=== PATIENT | female | born 1975 | race Caucasian/White ===

== ENCOUNTER 2016-12-02 16:30 | Emergency (ER) | payer MEDICARE, MEDICAID ==
[2016-12-02] MEDS ORDERED: traMADol 50 MG Tab ONE (16:45)
[2016-12-02 16:58] VITALS: BP 129/73
--- NOTE | 2016-12-02 23:51 | ER ---
HISTORY OF PRESENT ILLNESS: A 41-year-old lady here with complaints of right foot pain that has been present for a couple of weeks and is getting worse. She states that her ankle was painful earlier as well. She was seen in clinic earlier for this condition, ankle x-rays were taken, negative for fracture, it did show a heel spur. The patient denies any falls or injuries from this. 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 The pain seems to be slowly getting worse. She has been taking Advil some of the time. Today, she realized that she was limping when she was walking and it hurts even when she just stood and put weight on her right foot. She decided to come in for recheck. CURRENT MEDICATIONS: Imitrex and albuterol. ALLERGIES: PENICILLIN. OBJECTIVE: GENERAL APPEARANCE: The patient is awake and alert. No obvious distress at rest. VITAL SIGNS: Reviewed and they are normal. EXTREMITIES: Examining the right foot reveals skin is intact, there is no obvious swelling. There is diffuse tenderness with even light palpation over the dorsal and sole of the foot. The toes are nontender but the entire foot to the ankle is including the heel. The ankle and lower leg are nontender with palpation. There is good color involving the foot capillary refill is less than 2 seconds involving the toes. LAB AND X-RAY: X-ray was obtained which is negative for fracture or acute bony abnormality. DIAGNOSIS: Tendinitis type pain of the right foot. TREATMENT PLAN: A walking boot was applied. The patient is able to stand and bear weight with this with a significant improvement in pain. She will wear this with all walking activities. She can remove it at night. She is to take Advil 600 to 800 mg 3 times a day with food, and we will give her a few Ultram tablets to take as needed. She is to take it easy for the next couple of days. The patient does have an appointment in the clinic on Sunday. I advised her to keep that appointment for recheck. TATI/AZAR /[id number]
--- NOTE | 2016-12-03 21:14 | CR ---
DATE OF SERVICE: 12/02/2016 CLINICAL DATA: Foot pain x 2 weeks. No injury. RIGHT FOOT No acute fracture or dislocation. No lytic or blastic bone lesions. There are plantar and posterior calcaneal spurs. [id number] [facility]
== END 2016-12-02 17:30 | disposition home or self-care (01) ==
LOC: LB.ED 16:30
DX: M77.51 Other enthesopathy of right foot and ankle (principal); Z88.0 Allergy status to penicillin
CPT/HCPCS: 73630; A9270; 99283

== ENCOUNTER 2017-02-09 01:33 | Emergency (ER) | payer MEDICARE, MEDICAID ==
[2017-02-09] MEDS ORDERED: Sodium Chloride 0.9% 1,000 ML IV ONE (01:40)
[2017-02-09] MEDS ORDERED: Ondansetron 4 MG/2 ML SDV IVPUSH ONE (01:41)
[2017-02-09 02:18] VITALS: BP 133/85
--- NOTE | 2017-02-09 03:35 | ER ---
HPI: A 41-year-old lady who comes in by ambulance with questionable alcohol intoxication. The patient was drinking over the course of the evening and she started to vomit. A friend called the ambulance. The patient is unsure why she is here. She admits that she has been drinking alcohol and that she is vomiting and puking several times. CURRENT MEDICATIONS: Reviewed. ALLERGIES: MEDICATION ALLERGIES: PENICILLIN. OBJECTIVE: GENERAL APPEARANCE: The patient is awake and alert. She is slow to respond to questions. No respiratory distress. VITAL SIGNS: Reviewed. She is afebrile. Blood pressure is 133/85, respirations 18. LUNGS: Clear. CARDIAC: Heart sounds distinct without murmurs. SKIN: Warm and dry. LABORATORY AND X-RAY: CBC is unremarkable. CMP shows a slightly low potassium level of 3.3. ETOH is 169. DIAGNOSES: 1. Alcohol intoxication. 2. Mild hypokalemia secondary to vomiting. TREATMENT PLAN: Normal saline was given in bolus form, 1 L. The patient was also given Zofran 8 mg IV. After monitoring her for about an hour, she was sleeping quietly, but did wake to verbal stimuli. She states that she feels better. She is not nauseated and will be discharged home. She is to refrain from drinking alcohol and increase her water intake. Follow up as pjoanna DUFFY/AZAR /[id number]
== END 2017-02-09 03:23 | disposition home or self-care (01) ==
LOC: LB.ED 01:33
DX: F10.129 Alcohol abuse with intoxication, unspecified (principal); Y90.6 Blood alcohol level of 120-199 mg/100 ml; E87.6 Hypokalemia; R11.10 Vomiting, unspecified; Z88.0 Allergy status to penicillin
CPT/HCPCS: 36415; 80053; 85025; 96361; 96374; 99282; 99284; A0425; A0429; G0480; J2405; J7040

== ENCOUNTER 2017-07-07 18:10 | Emergency (ER) | payer MEDICARE, MEDICAID ==
[2017-07-07 18:35] VITALS: BP 119/83
--- NOTE | 2017-07-07 18:56 | EDM.PDOC ---
ED HPI GENERAL MEDICAL PROBLEM - General Chief Complaint: General Stated Complaint: LEFT FOOT INJURY Time Seen by Provider: 07/07/17 18:20 Source of Information: Reports: Patient History Limitations: Reports: No Limitations - History of Present Illness INITIAL COMMENTS - FREE TEXT/NARRATIVE: According to patient she claims that she was coming down the stairs and accidentally twisted her left foot and feel from 4 stairs height and hit her left great toe against the wooden rails. Pt has been able to walk since the fall , but has been c/o pain in her left great toe and ankle. No swelling or bruising of the foot or ankle. No other injuries. Onset: Today Onset Date: 07/07/17 Onset Time: 18:00 Location: Reports: Lower Extremity, Right Quality: Reports: Ache Severity: Mild Improves with: Reports: None Worsens with: Reports: None Associated Symptoms: Denies: Confusion, Chest Pain, Fever/Chills, Nausea/ Vomiting, Rash, Shortness of Breath, Syncope Left Feet Pain Score (Numeric/FACES): 6 - Related Data Allergies Allergy/AdvReac Type Severity Reaction Status Date / Time Penicillins Allergy Rash Verified 07/07/17 18:31 Home Meds: Home Meds Albuterol Sulfate [Ventolin Hfa] 1 puff INH BID PRN 07/07/17 [History] Albuterol/Ipratropium [Combivent Respimat] 1 puff INH BID PRN 07/07/17 [History] SUMAtriptan [Imitrex] 50 mg PO DAILY PRN 07/07/17 [History] traMADol HCl [Tramadol HCl] 50 tab PO TID PRN 07/07/17 [History] Past Medical History 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: 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: Neurological History: Reports: Migraines - Infectious Disease History Infectious Disease History: Reports: Chicken Pox - Past Surgical History GI Surgical History: Reports: Cholecystectomy Female Surgical History: Reports: Tubal Ligation Social & Family History - Family History Family Medical History: Noncontributory - Tobacco Use Smoking Status *Q: Light Tobacco Smoker Years of Tobacco use: 20 Packs/Tins Daily: 0.5 Used Tobacco, but Quit: No Month Tobacco Last Used: UNABLE TO DETERMINE Second Hand Smoke Exposure: Yes - Caffeine Use Caffeine Use: Reports: Soda - Alcohol Use Days Per Week of Alcohol Use: 1 Number of Drinks Per Day: 1 Total Drinks Per Week: 1 - Recreational Drug Use Recreational Drug Use: No ED ROS GENERAL - Review of Systems Review Of Systems: See Below Constitutional: Denies: Fever, Chills HEENT: Denies: Throat Pain, Throat Swelling Respiratory: Denies: Shortness of Breath, Wheezing, Cough, Sputum, Hemoptysis Cardiovascular: Denies: Chest Pain, Lightheadedness GI/Abdominal: Denies: Nausea, Vomiting Musculoskeletal: Reports: Foot Pain. Denies: Joint Pain, Joint Swelling, Muscle Stiffness Skin: Denies: Bruising, Pruritis ED EXAM, GENERAL - Physical Exam Exam: See Below Exam Limited By: No Limitations General Appearance: Alert, WD/WN, Mild Distress Eye Exam: Bilateral Eye: EOMI, PERRL Ears: Normal External Exam Nose: Normal Inspection, Normal Mucosa, No Blood Throat/Mouth: Normal Inspection, Normal Lips, Normal Teeth, Normal Gums, Normal Oropharynx, Normal Voice, No Airway Compromise Head: Atraumatic, Normocephalic Neck: Normal Inspection, Supple, Non-Tender, Full Range of Motion Respiratory/Chest: No Respiratory Distress, Lungs Clear, Normal Breath Sounds, No Accessory Muscle Use, Chest Non-Tender Cardiovascular: Normal Peripheral Pulses, Regular Rate, Rhythm, No Edema, No Gallop, No JVD, No Murmur, No Rub Extremities: Normal Inspection, Normal Range of Motion, No Pedal Edema, Normal Capillary Refill, Other (left foot: there is no obvious deformity. She has good ROM around the ankle. Tender over the lateral aspect of the ankle to pressure over the lateral malleolus. Tender over the great toe MTP joint. ) Course - Vital Signs Text/Narrative:: Pt's reassured that her left foot ankle Xray appears normal. Also the great toe appears normal. there is no swelling or bruising of the foot or ankle, and she has been weight bearing and walking on her feet. Chance of fracture is low. Pt reassured that she has ankle sprain. Advised cold compresses for 24 hrs followed by warm compresses 3-4 times daily. She is on tramadol by her PCP , advised to take it as needed. If not better followup with her PCP on sunday. Last Recorded V/S: Last Vital Signs Temp 97.6 F 07/07/17 18:40 Pulse 64 07/07/17 18:40 Resp 16 07/07/17 18:40 BP 119/83 07/07/17 18:40 Pulse Ox 98 07/07/17 18:40 - Orders/Labs/Meds Orders: Active Orders 24 hr Category Date Time Status Ankle Min 3V Lt [CR] Stat Exams 07/07/17 18:31 Taken Departure - Departure Time of Disposition: 19:15 Disposition: Home, Self-Care 01 Condition: Good Clinical Impression: Left ankle sprain - Discharge Information Instructions: Foot Contusion, [id number] Referrals: PCP,None [Primary Care Provider] - Forms: ED Department Discharge Additional Instructions: May take prescribed Tramadol as directed as needed for pain. May also take 800mg Ibuprofen every 8 hours as needed for pain. Apply cold compress to affected foot every 3-4 hours for 15 minutes to help with swelling. Also be sure to keep injured foot elevated to help with swelling as well. Activity as tolerated. May bear weight on affected foot. Follow up in clinic if needed. Call with any questions. - Problem List & Annotations (1) Left ankle sprain SNOMED Code(s): 89140910 Code(s): S93.402A - SPRAIN OF UNSPECIFIED LIGAMENT OF LEFT ANKLE, INIT ENCNTR Status: Acute Current Visit: Yes - Problem List Review Problem List Initiated/Reviewed/Updated: Yes - My Orders Last 24 Hours: My Active Orders 07/07/17 18:31 Ankle Min 3V Lt [CR] Stat - Assessment/Plan Last 24 Hours: My Active Orders 07/07/17 18:31 Ankle Min 3V Lt [CR] Stat Assessment:: left ankle sprain Plan: Pt's reassured that her left foot ankle Xray appears normal. Also the great toe appears normal. there is no swelling or bruising of the foot or ankle, and she has been weight bearing and walking on her feet. Chance of fracture is low. Pt reassured that she has ankle sprain. Advised cold compresses for 24 hrs followed by warm compresses 3-4 times daily. She is on tramadol by her PCP , advised to take it as needed. If not better followup with her PCP on sunday.
--- NOTE | 2017-07-09 08:24 | CR ---
DATE OF SERVICE: 07/07/17 CLINICAL DATA: injured left foot LEFT ANKLE: No acute fracture or dislocation. No lytic or blastic bone lesions. 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 There are plantar and posterior calcaneal spurs. No other significant findings. [id number] [facility]
== END 2017-07-07 19:23 | disposition home or self-care (01) ==
LOC: LB.ED 18:10
DX: S93.402A Sprain of unspecified ligament of left ankle, initial encounter (principal); Z88.0 Allergy status to penicillin; F17.210 Nicotine dependence, cigarettes, uncomplicated; W10.9XXA Fall (on) (from) unspecified stairs and steps, initial encounter
CPT/HCPCS: 73610-LT; 99283

== ENCOUNTER 2019-02-22 16:09 | Emergency (ER) | payer MEDICARE, MEDICAID ==
[2019-02-22 16:23] VITALS: BP 130/72; PULSE 64
[2019-02-22] MEDS ORDERED: Ketorolac 30 MG/ML SDV IM ONE (16:24)
--- NOTE | 2019-02-22 20:16 | EDM.PDOC ---
ED HPI GENERAL MEDICAL PROBLEM - General Chief Complaint: Headache Stated Complaint: MIGRAINE Time Seen by Provider: 02/22/19 16:22 Source of Information: Reports: Patient History Limitations: Reports: No Limitations - History of Present Illness INITIAL COMMENTS - FREE TEXT/NARRATIVE: According to patient she has been having headache since Sunday. Most of the pain is in the frontal region. goes from dull achy to throbbing. She has photophobia. but no nausea or vomiting. She has taken Imitrex on Sunday 2 times which did not help. So she started taking tylenol and motrin and the headache has not resolved. pt does have migraine and feels like this is one of the attack not resolving. No blurry vision. No weakness, no vomiting. No other complaints. Onset Date: 02/19/19 Duration: Getting Worse, Waxing/Waning Location: Reports: Head Quality: Reports: Ache Severity: Moderate Improves with: Reports: None Worsens with: Reports: None Associated Symptoms: Denies: Confusion, Chest Pain, Cough, Diaphoresis, Fever/ Chills, Headaches, Nausea/Vomiting, Rash, Seizure, Shortness of Breath, Syncope , Weakness Treatments CUT OFF SAWYER: Reports: Acetaminophen, NSAIDS, Other (see below) Other Treatments CUT OFF SAWYER: Imitrex Frontal Headache Pain Score (Numeric/FACES): 7 - Related Data Allergies Allergy/AdvReac Type Severity Reaction Status Date / Time Penicillins Allergy Rash Verified 02/22/19 16:19 Home Meds: Home Meds Albuterol Sulfate [Ventolin Hfa] 1 puff INH BID PRN 07/07/17 [History] Albuterol/Ipratropium [Combivent Respimat] 1 puff INH BID PRN 07/07/17 [History] SUMAtriptan [Imitrex] 50 mg PO ASDIRECTED PRN 07/07/17 [History] Past Medical History 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: Asthma Gastrointestinal History: Reports: None Genitourinary History: Reports: None 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: Neurological History: Reports: Migraines - Infectious Disease History Infectious Disease History: Reports: Chicken Pox - Past Surgical History Respiratory Surgical History: Reports: None GI Surgical History: Reports: Cholecystectomy Female Surgical History: Reports: Section, Tubal Ligation Neurological Surgical History: Reports: None Social & Family History - Family History Family Medical History: Noncontributory - Tobacco Use Smoking Status *Q: Former Smoker Used Tobacco, but Quit: Yes Month/Year Tobacco Last Used: 2018 - Caffeine Use Caffeine Use: Reports: Soda - Recreational Drug Use Recreational Drug Use: No ED ROS GENERAL - Review of Systems Review Of Systems: See Below Constitutional: Denies: Fever, Chills HEENT: Denies: Rhinitis, Throat Pain Respiratory: Denies: Shortness of Breath, Cough, Sputum Cardiovascular: Denies: Chest Pain, Lightheadedness GI/Abdominal: Denies: Abdominal Pain, Constipation, Diarrhea, Nausea, Vomiting : Denies: Dysuria, Frequency Musculoskeletal: Denies: Joint Pain, Joint Swelling Skin: Denies: Bruising, Pruritis, Rash Neurological: Reports: Headache. Denies: Confusion, Dizziness, Numbness, Tingling, Weakness ED EXAM, GENERAL - Physical Exam Exam: See Below Exam Limited By: No Limitations General Appearance: Alert, WD/WN, Mild Distress Eye Exam: Bilateral Eye: EOMI, PERRL Ears: Normal External Exam, Normal Canal, Hearing Grossly Normal, Normal TMs Ear Exam: Bilateral Ear: Auricle Normal, Canal Normal, TM normal Nose: Normal Inspection, Normal Mucosa, No Blood Throat/Mouth: Normal Inspection, Normal Lips, Normal Teeth, Normal Gums, Normal Oropharynx, Normal Voice, No Airway Compromise Head: Atraumatic, Normocephalic Neck: Normal Inspection, Supple, Non-Tender, Full Range of Motion Respiratory/Chest: No Respiratory Distress, Lungs Clear, Normal Breath Sounds, No Accessory Muscle Use, Chest Non-Tender Cardiovascular: Normal Peripheral Pulses, Regular Rate, Rhythm, No Edema, No Gallop, No JVD, No Murmur, No Rub Extremities: Normal Inspection, Normal Range of Motion, Non-Tender, Normal Capillary Refill, No Pedal Edema Neurological: Alert, Oriented, CN II-XII Intact, Normal Cognition, Normal Gait, Normal Reflexes, No Motor/Sensory Deficits Psychiatric: Normal Affect, Normal Mood Course - Vital Signs Text/Narrative:: Pt has a migraine attack. She did receive Toradol 30mg Im. She has been advised to go home and rest in a dark room. Headache should resolve in 2-4 hrs, but if not better should return to emergency room. Pt understands and agrees with the plan. Last Recorded V/S: Last Vital Signs Temp 98.9 F 02/22/19 16:21 Pulse 64 02/22/19 16:21 Resp 18 02/22/19 16:21 BP 130/72 02/22/19 16:21 Pulse Ox 99 02/22/19 16:21 - Orders/Labs/Meds Meds: Medications Discontinued Medications Generic Name Dose Route Start Last Admin Trade Name Lyubov PRN Reason Stop Dose Admin Ketorolac Tromethamine 30 mg 02/22/19 16:24 02/22/19 16:28 Toradol IM 02/22/19 16:25 30 mg ONETIME ONE Administration Departure - Departure Time of Disposition: 16:50 Disposition: Home, Self-Care 01 Condition: Fair Clinical Impression: Migraine - Discharge Information *PRESCRIPTION DRUG MONITORING PROGRAM REVIEWED*: Not Applicable *COPY OF PRESCRIPTION DRUG MONITORING REPORT IN PATIENT LASHONDA: Not Applicable Instructions: Migraine Headache, [id number] Forms: ED Department Discharge Additional Instructions: You were given Toradol in the ER. Go home and sleep in a dark room. Avoid the TV or loud noises until headache subsides. - Problem List & Annotations (1) Migraine SNOMED Code(s): 14130228 Code(s): G43.909 - MIGRAINE, UNSP, NOT INTRACTABLE, WITHOUT STATUS MIGRAINOSUS Status: Acute - Problem List Review Problem List Initiated/Reviewed/Updated: Yes - Assessment/Plan Assessment:: Migraine headache Plan: Pt has a migraine attack. She did receive Toradol 30mg Im. She has been advised to go home and rest in a dark room. Headache should resolve in 2-4 hrs, but if not better should return to emergency room. Pt understands and agrees with the plan.
== END 2019-02-22 16:36 | disposition home or self-care (01) ==
LOC: LB.ED 16:09
DX: G43.909 Migraine, unspecified, not intractable, without status migrainosus (principal); J45.909 Unspecified asthma, uncomplicated; Z88.0 Allergy status to penicillin; Z90.49 Acquired absence of other specified parts of digestive tract; Z98.51 Tubal ligation status; Z79.899 Other long term (current) drug therapy; Z87.891 Personal history of nicotine dependence
CPT/HCPCS: 96372; 99283; J1885

== ENCOUNTER 2019-04-04 05:59 | Emergency (ER) | payer MEDICARE, MEDICAID ==
[2019-04-04] MEDS ORDERED: Morphine 10 MG/ML Syringe IVPUSH ONE (06:41)
[2019-04-04 06:45] VITALS: BP 127/76
[2019-04-04] MEDS ORDERED: Ketorolac 30 MG/ML SDV IVPUSH ONE (07:15)
[2019-04-04] MEDS ORDERED: Ketorolac 30 MG/ML SDV ONE (08:00)
--- NOTE | 2019-04-04 08:32 | CT ---
DATE OF SERVICE: 04/04/19 CLINICAL DATA: abd pain UNENHANCED ABDOMEN AND PELVIC CT: Multislice acquisition through the abdomen and pelvis without IV or oral contrast was performed. Comparison is made to a prior abdomen and pelvic CT dated 06/28/16. There are mild atelectatic changes in the dependent portion of the right lower lung. The lung bases are otherwise clear. The liver is normal size with homogeneous attenuation. No focal hepatic lesions. The patient is status post cholecystectomy. The spleen appears normal. The pancreas appears normal. The right and left adrenals appear normal. The right and left kidneys appear normal. No nephrocalcinosis or nephrolithiasis. No hydronephrosis or hydroureter. The bladder is partially fluid-filled. There is apparent diffuse bladder wall thickening. This is probably related to known distension. Cystitis should at least be considered. The appendix is not dilated. No evidence of appendicitis. There is diverticulosis of the descending and sigmoid colon. No evidence of diverticulitis. There are multiple loops of small bowel within the left abdomen with apparent mural thickening. This is probably related to known distension. Enteritis should at least be considered. No free air. No free fluid. No dilated loops of bowel. No adenopathy. No aortic aneurysm. There is a small umbilical hernia containing fat. IMPRESSION: Findings as discussed above. [id number] [facility]
--- NOTE | 2019-04-04 09:37 | EDM.PDOC ---
ED HPI GENERAL MEDICAL PROBLEM - General Chief Complaint: General Stated Complaint: ABD PAIN Time Seen by Provider: 04/04/19 06:30 Source of Information: Reports: Patient History Limitations: Reports: No Limitations - History of Present Illness INITIAL COMMENTS - FREE TEXT/NARRATIVE: This is a 43yo F here for lower abdominal pain. Patient states it started yesterday and has not improved. She rates it a 10/10. She appears relaxed in the stretcher. She has had history of ovarian cysts and lower abdominal pain in the past but states the pain has not been this bad. She denies any nausea, no vomiting, no fever or chills, no shortness of breath, no chest pain, no other complaints. Onset: Gradual Duration: Day(s): Location: Reports: Abdomen - Related Data Allergies Allergy/AdvReac Type Severity Reaction Status Date / Time Penicillins Allergy Rash Verified 04/04/19 06:46 Home Meds: Home Meds Albuterol Sulfate [Ventolin Hfa] 1 puff INH BID PRN 07/07/17 [History] Albuterol/Ipratropium [Combivent Respimat] 1 puff INH BID PRN 07/07/17 [History] RX: SUMAtriptan [Imitrex] 50 mg PO ASDIRECTED PRN 07/07/17 [History] Ciprofloxacin HCl [Cipro] 500 mg PO BID #20 tablet 04/04/19 [Rx] metroNIDAZOLE [Flagyl] 500 mg PO Q8H #30 tab 04/04/19 [Rx] Past Medical History 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: Asthma Gastrointestinal History: Reports: None Genitourinary History: Reports: 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 ED EXAM, GI/ABD - Physical Exam Exam: See Below Exam Limited By: No Limitations General Appearance: Alert, WD/WN, No Apparent Distress Eyes: Bilateral: EOMI Ears: Normal External Exam Nose: Normal Inspection Throat/Mouth: Normal Inspection Head: Atraumatic, Normocephalic Neck: Normal Inspection Respiratory/Chest: No Respiratory Distress, Lungs Clear, Normal Breath Sounds Cardiovascular: Normal Peripheral Pulses, Regular Rate, Rhythm GI/Abdominal Exam: Normal Bowel Sounds, Soft, Non-Tender Back Exam: Normal Inspection Extremities: Normal Inspection Neurological: Alert, Oriented, CN II-XII Intact Course - Vital Signs Last Recorded V/S: Last Vital Signs Temp 36.2 C 04/04/19 06:11 Pulse 76 04/04/19 06:11 Resp 18 04/04/19 06:11 BP 127/76 04/04/19 06:11 Pulse Ox 98 04/04/19 06:11 - Orders/Labs/Meds Labs: Laboratory Tests 04/04/19 04/04/19 Range/Units 06:30 06:30 WBC 12.7 H D (4.0-11.0) K/uL RBC 4.93 (3.80-5.80) M/uL Hgb 14.5 (11.5-16.5) g/dL Hct 42.6 (37.0-47.0) % MCV 86 (76-96) fL MCH 29.4 (27.0-32.0) pg MCHC 34.0 (31.0-35.0) g/dL RDW 13.3 (11.0-16.0) % Plt Count 207 D (150-500) K/uL MPV 10.0 (6.0-10.0) fL Neut % (Auto) 72.0 H (45.0-70.0) % Lymph % (Auto) 16.5 L (20.0-40.0) % Jewell % (Auto) 10.0 (3.0-10.0) % Eos % (Auto) 1.3 (1.0-5.0) % Baso % (Auto) 0.2 (0.0-0.5) % Neut # (Auto) 9.13 H (2.00-7.50) K/uL Lymph # (Auto) 2.09 (1.50-4.00) K/uL Jewell # (Auto) 1.27 H (0.20-0.80) K/uL Eos # (Auto) 0.17 (0.04-0.40) K/uL Baso # (Auto) 0.02 (0.02-0.10) K/uL Sodium 139 (136-145) mmol/L Potassium 4.4 (3.5-5.1) mmol/L Chloride 105 (98-107) mmol/L Carbon Dioxide 23.5 (21.0-32.0) mmol/L Anion Gap 14.9 (5.0-15.0) mmol/L BUN 16 (8-26) mg/dL Creatinine 0.74 (0.55-1.02) mg/dL Est Cr Clr Drug Dosing TNP Estimated GFR (MDRD) > 60 (>60) MLS/MIN BUN/Creatinine Ratio 21.6 (6-25) Glucose 102 H (74-100) mg/dL Calcium 8.3 L (8.5-10.1) mg/dL Total Bilirubin 0.8 D (0.0-1.0) mg/dL AST 37 (15-37) U/L ALT 49 (12-78) U/L Alkaline Phosphatase 82 (46-116) U/L Total Protein 7.1 (6.4-8.2) g/dL Albumin 3.4 (3.4-5.0) g/dL Globulin 3.7 (2.2-4.2) g/dL Albumin/Globulin Ratio 0.9 (0.8-2.0) Meds: Medications Discontinued Medications Generic Name Dose Route Start Last Admin Trade Name Freq PRN Reason Stop Dose Admin Ketorolac Tromethamine 30 mg 04/04/19 07:15 Toradol IVPUSH 04/04/19 07:16 ONETIME ONE Morphine Sulfate 3 mg 04/04/19 06:41 04/04/19 06:25 Morphine IVPUSH 04/04/19 06:42 3 mg ONETIME ONE Administration Departure - Departure Time of Disposition: 07:30 Disposition: Home, Self-Care 01 Condition: Good Clinical Impression: Enteritis - Discharge Information Prescriptions: Ciprofloxacin HCl [Cipro] 500 mg PO BID #20 tablet metroNIDAZOLE [Flagyl] 500 mg PO Q8H #30 tab Referrals: PCP,None [Primary Care Provider] - Forms: ED Department Discharge - Problem List & Annotations (1) Enteritis SNOMED Code(s): 10584151 Code(s): K52.9 - NONINFECTIVE GASTROENTERITIS AND COLITIS, UNSPECIFIED Status: Acute - Problem List Review Problem List Initiated/Reviewed/Updated: Yes - Assessment/Plan Plan: Patient counseled on close follow up if symptoms persist. Discussed antibiotics and side effects and rtc next week for routine f/u and check. Patient to rtc or ER if symptoms worsen or persist.
== END 2019-04-04 08:15 | disposition home or self-care (01) ==
LOC: LB.ED 05:59
DX: K52.9 Noninfective gastroenteritis and colitis, unspecified (principal); J45.909 Unspecified asthma, uncomplicated; Z88.0 Allergy status to penicillin; Z79.51 Long term (current) use of inhaled steroids; Z90.49 Acquired absence of other specified parts of digestive tract; Z98.51 Tubal ligation status
CPT/HCPCS: 36415; 74176; 80053; 85025; 96374; 96375; 99284; J1885; J2270; J7030

== ENCOUNTER 2019-11-04 10:04 | Emergency (ER) | payer MEDICARE, MEDICAID ==
[2019-11-04] MEDS ORDERED: Sodium Chloride 0.9% 1,000 ML IV SCH (10:45)
[2019-11-04] MEDS ORDERED: Ketorolac 30 MG/ML SDV IVPUSH ONE (10:45)
[2019-11-04] MEDS ORDERED: diphenhydrAMINE 50 MG/ML SDV IVPUSH ONE (10:45)
[2019-11-04] MEDS ORDERED: Ondansetron 4 MG/2 ML SDV IVPUSH ONE (10:45)
[2019-11-04] MEDS ORDERED: diphenhydrAMINE 50 MG/ML SDV ONE (10:56)
[2019-11-04] MEDS ORDERED: Ondansetron 4 MG/2 ML SDV ONE (10:56)
[2019-11-04] MEDS ORDERED: Ketorolac 30 MG/ML SDV ONE (10:56)
--- NOTE | 2019-11-04 11:06 | EDM.PDOC ---
ED HPI GENERAL MEDICAL PROBLEM - General Chief Complaint: Headache Stated Complaint: HEADACHE Time Seen by Provider: 11/04/19 10:50 Source of Information: Reports: Patient History Limitations: Reports: No Limitations - History of Present Illness INITIAL COMMENTS - FREE TEXT/NARRATIVE: This patient presents to the ED for evaluation of a headache. She states that she has had a headache for the past 5-6 days and that her usual medication is not working. She states she uses Imitrex but has not been able to take that because she "is supposed to take it before the headache starts, not during the headache." She states that she has been taking ibuprofen and another OTC headache remedy. She denies photophobia, nausea, or vomiting. She denies recent illness including fever, cough, sore throat. Onset Date: 10/30/19 Duration: Constant Location: Reports: Head Treatments MARKETING CAMPAIGN ANALYST: Reports: Other (see below) Other Treatments MARKETING CAMPAIGN ANALYST: Ibprofen Head Pain Score (Numeric/FACES): 8 - Related Data Allergies Allergy/AdvReac Type Severity Reaction Status Date / Time Penicillins Allergy Rash Verified 04/04/19 06:46 Home Meds: Home Meds Albuterol Sulfate [Ventolin Hfa] 1 puff INH BID PRN 07/07/17 [History] Albuterol/Ipratropium [Combivent Respimat] 1 puff INH BID PRN 07/07/17 [History] SUMAtriptan [Imitrex] 50 mg PO ASDIRECTED PRN 07/07/17 [History] Ciprofloxacin HCl [Cipro] 500 mg PO BID #20 tablet 04/04/19 [Rx] metroNIDAZOLE [Flagyl] 500 mg PO Q8H #30 tab 04/04/19 [Rx] Past Medical History 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: Asthma Gastrointestinal History: Reports: None Genitourinary History: Reports: None 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 - Physical Exam Exam: See Below Exam Limited By: No Limitations General Appearance: Alert, WD/WN, No Apparent Distress Eye Exam: Bilateral Eye: PERRL Ears: Normal External Exam Nose: Normal Inspection Throat/Mouth: Normal Inspection Head Exam: Atraumatic, Normocephalic Neck: Normal Inspection Respiratory/Chest: No Respiratory Distress, No Accessory Muscle Use Neuro Exam (Abbreviated): Alert, Oriented Skin Exam: Warm, Dry Course - Vital Signs Last Recorded V/S: Last Vital Signs Temp 36.7 C 11/04/19 11:14 Pulse 73 11/04/19 11:14 Resp 16 11/04/19 11:14 BP 138/83 11/04/19 11:14 Pulse Ox 97 11/04/19 11:14 - Orders/Labs/Meds Orders: Active Orders 24 hr Category Date Time Status Sodium Chloride 0.9% [Normal Saline] 1,000 ml Med 11/04/19 10:45 Active IV ASDIRECTED Saline Lock Insert [OM.PC] Stat Oth 11/04/19 10:45 Ordered Medication Orders Sodium Chloride (Normal Saline) 1,000 mls @ 999 mls/hr IV ASDIRECTED [facility] Last Admin: 11/04/19 10:50 Dose: 999 mls/hr Meds: Medications Generic Name Dose Route Start Last Admin Trade Name Freq PRN Reason Stop Dose Admin Sodium Chloride 1,000 mls @ 999 mls/hr 11/04/19 10:45 11/04/19 10:50 Normal Saline IV 999 mls/hr ASDIRECTED [facility] Administration Discontinued Medications Generic Name Dose Route Start Last Admin Trade Name Freq PRN Reason Stop Dose Admin Diphenhydramine HCl 50 mg 11/04/19 10:45 11/04/19 10:56 Benadryl IVPUSH 11/04/19 10:46 50 mg ONETIME ONE Administration Diphenhydramine HCl Confirm 11/04/19 10:56 11/04/19 11:01 Benadryl Administered 11/04/19 10:57 Not Given Dose 50 mg .ROUTE .STK-MED ONE Ketorolac Tromethamine 30 mg 11/04/19 10:45 11/04/19 11:01 Toradol IVPUSH 11/04/19 10:46 30 mg ONETIME ONE Administration Ketorolac Tromethamine Confirm 11/04/19 10:56 11/04/19 11:01 Toradol Administered 11/04/19 10:57 Not Given Dose 30 mg .ROUTE .STK-MED ONE Ondansetron HCl 4 mg 11/04/19 10:45 11/04/19 10:54 Zofran IVPUSH 11/04/19 10:46 4 mg ONETIME ONE Administration Ondansetron HCl Confirm 11/04/19 10:56 11/04/19 11:01 Zofran Administered 11/04/19 10:57 Not Given Dose 4 mg .ROUTE .STK-MED ONE - Re-Assessments/Exams Free Text/Narrative Re-Assessment/Exam: 11/04/19 11:57 This patient presents to the ED with a report of typical migraine headache that has lasted longer than usual. She denies any new symptoms and attempted her usual treatments prior to arrival without success although she only used her sumatriptan once at the onset. The examination was found to be normal. Specifically, there was a non-focal neurologic exam and no signs concerning to infectious etiologies. Clinically the life threatening diagnosis of SAH and meningitis/encephalitis were excluded. I also had no concerns for metabolic disorders which may produce a headache. After interventions as shown above, She reported good improvement and was able to be discharged to home. The patient was instructed to follow up with her primary care provider in 2-3 days to re- evaluate this episode and the current treatment regimen. She was reminded to return immediately if any worsening or new symptoms develop. She was in complete understanding and agreement with this plan and at the time of discharge had no further concerns or complaints. Departure - Departure Time of Disposition: 11:59 Disposition: Home, Self-Care 01 Condition: Good Clinical Impression: Migraine, Migraine - Discharge Information *PRESCRIPTION DRUG MONITORING PROGRAM REVIEWED*: No *COPY OF PRESCRIPTION DRUG MONITORING REPORT IN PATIENT LASHONDA: No Instructions: Recurrent Migraine Headache Referrals: PCP,None [Primary Care Provider] - Forms: ED Department Discharge Sepsis Event Note - Focused Exam Vital Signs: Vital Signs Temp Pulse Resp BP Pulse Ox 11/04/19 11:14 36.7 C 73 16 138/83 97 Date Exam was Performed: 11/04/19 Time Exam was Performed: 11:56 - My Orders Last 24 Hours: My Active Orders 11/04/19 10:45 Sodium Chloride 0.9% [Normal Saline] 1,000 ml IV ASDIRECTED Saline Lock Insert [OM.PC] Stat - Assessment/Plan Last 24 Hours: My Active Orders 11/04/19 10:45 Sodium Chloride 0.9% [Normal Saline] 1,000 ml IV ASDIRECTED Saline Lock Insert [OM.PC] Stat
[2019-11-04 11:57] VITALS: BP 119/78; PULSE 57
== END 2019-11-04 12:01 | disposition home or self-care (01) ==
LOC: LB.ED 10:04
DX: G43.909 Migraine, unspecified, not intractable, without status migrainosus (principal); J45.909 Unspecified asthma, uncomplicated; Z88.0 Allergy status to penicillin; Z79.899 Other long term (current) drug therapy
CPT/HCPCS: 96361; 96374; 96375; 99283-25; 99284; J1200; J1885; J2405; J7030

== ENCOUNTER 2019-11-13 23:39 | Inpatient (IN) | payer MEDICARE, MEDICAID ==
[2019-11-13] MEDS ORDERED: Sodium Chloride 0.9% 1,000 ML IV ONE (23:56)
[2019-11-13] MEDS ORDERED: Ketorolac 60 MG/2 ML SDV IVPUSH ONE (23:58)
[2019-11-13] MEDS ORDERED: Ondansetron 4 MG/2 ML SDV IVPUSH ONE (23:58)
[2019-11-13] MEDS ORDERED: diphenhydrAMINE 50 MG/ML SDV IVPUSH ONE (23:59)
--- NOTE | 2019-11-14 00:07 | EDM.PDOC ---
ED HPI GENERAL MEDICAL PROBLEM - General Stated Complaint: RIGHT SIDED PAIN Time Seen by Provider: 11/13/19 23:45 - History of Present Illness INITIAL COMMENTS - FREE TEXT/NARRATIVE: Olivia presents [facility] for evaluation of severe right lower quadrant pain. She states that she was in her state of usual health around 1700 when she had stopped peppers for dinner. She states this is her favorite meal. She certainly displays anorexia in regards to this now. She states her abdominal pain started more generalized around her periumbilical area at 2130. She went to bed, and awoke up from sleep around 2300 with severe pain that was more right -sided. She states that it is very sharp and pretty constant in nature. It is worse with trying to sit or lay down. She describes no palliating factors and has not tried any medications at this point. She states that she was recently seen for a bad migraine and was treated with Benadryl, Zofran, and Toradol along with a liter of normal saline and this helped her significantly. She is otherwise been well. She feels a bit chilled. She has had no cough, headache, chest discomfort, and actually does not endorse any nausea at this point. She has had no bowel movement changes, other GI or concerns, as well as any vaginal discharge or bleeding. Her pain radiates down into her right upper thigh a bit. She is most comfortable standing leaning forward. She denies any prior issues. She is status post cholecystectomy, as well as of 2 children. She has chronic migraine headaches as her main medical issue. 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 ED EXAM, GENERAL - Physical Exam Exam: See Below Exam Limited By: No Limitations General Appearance: Alert, Moderate Distress Eye Exam: Bilateral Eye: EOMI, Normal Inspection Ears: Normal External Exam, Hearing Grossly Normal Nose: Normal Inspection, Normal Mucosa Throat/Mouth: Normal Inspection, Normal Lips, Normal Oropharynx Head: Atraumatic, Normocephalic Neck: Normal Inspection, Supple, Non-Tender, Full Range of Motion Respiratory/Chest: No Respiratory Distress, Lungs Clear, Normal Breath Sounds Cardiovascular: Regular Rate, Rhythm, No Gallop, No Murmur, No Rub GI/Abdominal: Soft, No Distention, Guarding, Other (Overall hypoactive bowel sounds with some definite right lower quadrant tenderness to percussion along with mild palpation without obvious rebound tenderness present.) (Female) Exam: Deferred Rectal (Female) Exam: Deferred Back Exam: Normal Inspection, Full Range of Motion, Decreased Range of Motion. No: CVA Tenderness (R), CVA Tenderness (L) Extremities: Normal Inspection, Non-Tender, Normal Capillary Refill Neurological: Alert ( ) Course - Vital Signs Last Recorded V/S: Last Vital Signs Temp 98.9 F 11/14/19 12:00 Pulse 77 11/14/19 12:00 Resp 16 11/14/19 12:00 BP 117/66 11/14/19 12:00 Pulse Ox 97 11/14/19 12:00 - Orders/Labs/Meds Orders: Active Orders 24 hr Category Date Time Status Abdomen Pelvis wo Cont [CT] Stat Exams 11/14/19 00:00 Taken HYDROmorphone [Dilaudid] Med 11/13/19 23:56 Active 0.5 mg IVPUSH Q20M PRN Medication Orders Acetaminophen (Tylenol) 650 mg PO Q4H PRN PRN Reason: analgesia/fever Last Admin: 11/14/19 12:10 Dose: 650 mg Admin: 11/14/19 08:21 Dose: 650 mg Hydromorphone HCl (Dilaudid) 0.5 mg IVPUSH Q20M PRN PRN Reason: Pain/Fever Last Admin: 11/14/19 10:36 Dose: 0.5 mg Admin: 11/14/19 07:38 Dose: 0.5 mg Admin: 11/14/19 02:45 Dose: 0.5 mg Admin: 11/14/19 01:25 Dose: 0.5 mg Ciprofloxacin/Dextrose 400 mg/ (Premix) 200 mls @ 200 mls/hr IV Q12HR [facility] Last Admin: 11/14/19 07:51 Dose: 200 mls/hr Metronidazole 500 mg/ Premix 100 mls @ 100 mls/hr IV Q8H [facility] Last Admin: 11/14/19 09:17 Dose: 100 mls/hr Infusion: 11/14/19 02:20 Dose: 100 mls/hr Admin: 11/14/19 01:20 Dose: 100 mls/hr Potassium Chloride/Dextrose/Sod Cl (D5 1/2 Ns W/ 20 Meq/L Kcl) 1,000 mls @ 150 mls/hr IV ASDIRECTED [facility] Last Admin: 11/14/19 02:40 Dose: 150 mls/hr Lactobacillus Acidophilus (Acidolphilus Extra Strength) 1 tab PO DAILY [facility] Last Admin: 11/14/19 13:45 Dose: 1 tab Ondansetron HCl (Zofran) 4 mg IVPUSH Q6H PRN PRN Reason: Nausea/Vomiting Last Admin: 11/14/19 09:04 Dose: 4 mg Admin: 11/14/19 03:19 Dose: 4 mg Senna (Senna) 8.6 mg PO DAILY [facility] Labs: Laboratory Tests 11/14/19 Range/Units 00:10 Sodium 138 (136-145) mmol/L Potassium 4.0 (3.5-5.1) mmol/L Chloride 101 (98-107) mmol/L Carbon Dioxide 28.5 D (21.0-32.0) mmol/L Anion Gap 12.5 (5.0-15.0) mmol/L BUN 17 (8-26) mg/dL Creatinine 0.96 D (0.55-1.02) mg/dL Est Cr Clr Drug Dosing 58.19 mL/min Estimated GFR (MDRD) > 60 (>60) MLS/MIN BUN/Creatinine Ratio 17.7 (6-25) Glucose 115 H (74-100) mg/dL Calcium 8.5 (8.5-10.1) mg/dL Total Bilirubin 0.3 D (0.0-1.0) mg/dL AST 17 (15-37) U/L ALT 37 (12-78) U/L Alkaline Phosphatase 73 (46-116) U/L C-Reactive Protein 5.4 H (0.0-3.0) mg/L Total Protein 7.1 (6.4-8.2) g/dL Albumin 3.5 (3.4-5.0) g/dL Globulin 3.6 (2.2-4.2) g/dL Albumin/Globulin Ratio 1.0 (0.8-2.0) Amylase 51 (25-115) U/L Meds: Medications Generic Name Dose Route Start Last Admin Trade Name Freq PRN Reason Stop Dose Admin Acetaminophen 650 mg 11/14/19 00:49 11/14/19 12:10 Tylenol PO 650 mg Q4H PRN Administration analgesia/fever Hydromorphone HCl 0.5 mg 11/13/19 23:56 11/14/19 10:36 Dilaudid IVPUSH 0.5 mg Q20M PRN Administration Pain/Fever Ciprofloxacin/Dextrose 400 mg/ 200 mls @ 200 mls/hr 11/14/19 08:00 11/14/19 07:51 Premix IV 200 mls/hr Q12HR [facility] Administration Metronidazole 500 mg/ Premix 100 mls @ 100 mls/hr 11/14/19 01:00 11/14/19 09: 17 IV 100 mls/hr Q8H [facility] Administration Potassium Chloride/Dextrose/Sod Cl 1,000 mls @ 150 mls/hr 11/14/19 01:00 02:40 D5 1/2 Ns W/ 20 Meq/L Kcl IV 150 mls/hr ASDIRECTED [facility] Administration Lactobacillus Acidophilus 1 tab 11/14/19 13:30 11/14/19 13:45 Acidolphilus Extra Strength PO 1 tab DAILY [facility] Administration Ondansetron HCl 4 mg 11/14/19 00:53 04/17/20 09:04 Zofran IVPUSH 4 mg Q6H PRN Administration Nausea/Vomiting Senna 8.6 mg 11/14/19 13:45 Senna PO DAILY [facility] Discontinued Medications Generic Name Dose Route Start Last Admin Trade Name Freq PRN Reason Stop Dose Admin Diphenhydramine HCl 50 mg 11/13/19 23:59 11/14/19 00:33 Benadryl IVPUSH 11/14/19 00:00 50 mg ONETIME ONE Administration Diphenhydramine HCl Confirm 11/14/19 00:40 11/14/19 00:41 Benadryl Administered 11/14/19 00:41 Not Given Dose 50 mg .ROUTE .STK-MED ONE Diphenhydramine HCl Confirm 11/14/19 00:44 11/14/19 00:41 Benadryl Administered 11/14/19 00:45 Not Given Dose 50 mg .ROUTE .STK-MED ONE Hydromorphone HCl Confirm 11/14/19 01:18 11/14/19 01:29 Dilaudid Administered 11/14/19 01:19 Not Given Dose 2 mg .ROUTE .STK-MED ONE Hydromorphone HCl Confirm 11/14/19 07:34 11/14/19 08:02 Dilaudid Administered 11/14/19 07:35 Not Given Dose 2 mg .ROUTE .STK-MED ONE Sodium Chloride 1,000 mls @ 999 mls/hr 11/13/19 23:56 11/14/19 00:30 Normal Saline IV 11/14/19 00:56 999 mls/hr .BOLUS ONE Administration Metronidazole Confirm 11/14/19 01:17 11/14/19 01:30 Flagyl 500 Mg In Ns 100 Ml Administered 11/14/19 01:18 Not Given Dose 100 mls @ as directed .ROUTE .STK-MED ONE Ciprofloxacin/Dextrose Confirm 11/14/19 01:17 11/14/19 02:52 Cipro In D5w 400 Mg/200 Ml Administered 11/14/19 01:18 200 mls/hr Dose Administration 200 mls @ as directed .ROUTE .STK-MED ONE Metronidazole Confirm 11/14/19 07:19 11/14/19 08:03 Flagyl 500 Mg In Ns 100 Ml Administered 11/14/19 07:20 Not Given Dose 100 mls @ as directed .ROUTE .STK-MED ONE Ciprofloxacin/Dextrose Confirm 11/14/19 07:19 11/14/19 08:02 Cipro In D5w 400 Mg/200 Ml Administered 11/14/19 07:20 Not Given Dose 200 mls @ as directed .ROUTE .STK-MED ONE Ketorolac Tromethamine 15 mg 11/13/19 23:58 11/14/19 00:31 Toradol IVPUSH 11/13/19 23:59 15 mg ONETIME ONE Administration Ketorolac Tromethamine Confirm 11/14/19 00:40 11/14/19 00:41 Toradol Administered 11/14/19 00:41 Not Given Dose 30 mg .ROUTE .STK-MED ONE Lactobacillus Acidophilus Confirm 11/14/19 13:35 Acidolphilus Extra Strength Administered 11/14/19 13:36 Dose 1 tab .ROUTE .STK-MED ONE Ondansetron HCl 4 mg 11/13/19 23:58 11/14/19 00:35 Zofran IVPUSH 11/13/19 23:59 4 mg ONETIME ONE Administration Ondansetron HCl Confirm 11/14/19 00:40 11/14/19 01:14 Zofran Administered 11/14/19 00:41 Not Given Dose 4 mg .ROUTE .STK-MED ONE Senna Confirm 11/14/19 13:35 Senna Administered 11/14/19 13:36 Dose 8.6 mg .ROUTE .STK-MED ONE Senna/Docusate Sodium 1 tab 11/14/19 13:30 11/14/19 13:46 Senna Plus PO Not Given DAILY [facility] Departure - Departure Time of Disposition: 12:40 Disposition: Admitted As Inpatient 66 Condition: Fair Clinical Impression: Diverticulitis - Discharge Information *PRESCRIPTION DRUG MONITORING PROGRAM REVIEWED*: Not Applicable *COPY OF PRESCRIPTION DRUG MONITORING REPORT IN PATIENT LASHONDA: Not Applicable Sepsis Event Note - Focused Exam Date Exam was Performed: 11/14/19 Time Exam was Performed: 14:19 - My Orders Last 24 Hours: My Active Orders 11/13/19 23:56 HYDROmorphone [Dilaudid] 0.5 mg IVPUSH Q20M PRN 11/14/19 00:00 Abdomen Pelvis wo Cont [CT] Stat - Assessment/Plan Last 24 Hours: My Active Orders 04/16/20 23:56 HYDROmorphone [Dilaudid] 0.5 mg IVPUSH Q20M PRN 11/14/19 00:00 Abdomen Pelvis wo Cont [CT] Stat
[2019-11-14] MEDS ORDERED: Ondansetron 4 MG/2 ML SDV ONE (00:40)
[2019-11-14] MEDS ORDERED: diphenhydrAMINE 50 MG/ML SDV ONE ×2 (00:40→00:44)
[2019-11-14] MEDS ORDERED: Ketorolac 30 MG/ML SDV ONE (00:40)
[2019-11-14] MEDS ORDERED: D5 1/2 NS w/ 20 mEq/L KCl 1,000 ML IV SCH (01:00)
[2019-11-14] MEDS ORDERED: metroNIDAZOLE/Normal Saline 100 ML ONE ×3 (01:17→17:26)
[2019-11-14] MEDS ORDERED: HYDROmorphone 2 MG/ML SDV ONE ×3 (01:18→19:38)
[2019-11-14] MEDS: metroNIDAZOLE/Normal Saline 500 MG in Premix Bag 1 BAG IV SCH ×3 (01:20→17:28)
[2019-11-14] MEDS: HYDROmorphone 2 MG/ML Syringe IVPUSH PRN ×5 (01:25→19:48)
[2019-11-14] MEDS: Ciprofloxacin in D5W 200 ML ONE ×2 (01:58→02:52)
[2019-11-14] MEDS: Ondansetron 4 MG/2 ML SDV IVPUSH PRN ×3 (03:19→20:27)
[2019-11-14] MEDS ORDERED: Ciprofloxacin in D5W 200 ML ONE ×2 (07:19→19:29)
[2019-11-14] MEDS: Ciprofloxacin in D5W 400 MG in Premix Bag 1 BAG IV SCH ×4 (07:51→19:45)
[2019-11-14] MEDS: Acetaminophen 325 MG Tab PO PRN ×3 (08:21→17:19)
[2019-11-14] MEDS ORDERED: Lactobacillus Acidophilus/Lactobacillus Sporogenes (Probiotic) Tab ONE (13:35)
[2019-11-14] MEDS ORDERED: Sennosides 8.6 MG Tab ONE (13:35)
[2019-11-14] MEDS: Lactobacillus Acidophilus/Lactobacillus Sporogenes (Probiotic) Tab PO SCH (13:45)
[2019-11-14] MEDS ORDERED: Sennosides 8.6 MG Tab PO SCH (13:45)
--- NOTE | 2019-11-14 13:52 | PCM.PN ---
- General Info Date of Service: 11/14/19 - Patient Data Vitals - Most Recent: Last Vital Signs Temp 98.9 F 11/14/19 12:00 Pulse 77 11/14/19 12:00 Resp 16 11/14/19 12:00 BP 117/66 11/14/19 12:00 Pulse Ox 97 11/14/19 12:00 Weight - Most Recent: 212 lb 1 oz I&O - Last 24 Hours: Intake & Output 11/13/19 11/14/19 11/14/19 22:59 06:59 14:59 Intake Total 3550 Balance 3550 Lab Results Last 24 Hours: Laboratory Results - last 24 hr 11/14/19 11/14/19 11/14/19 Range/Units 00:10 01:46 01:46 WBC (4.0-11.0) K/uL RBC (3.80-5.80) M/uL Hgb (11.5-16.5) g/dL Hct (37.0-47.0) % MCV (76-96) fL MCH (27.0-32.0) pg MCHC (31.0-35.0) g/dL RDW (11.0-16.0) % Plt Count (150-500) K/uL MPV (6.0-10.0) fL Neut % (Auto) (45.0-70.0) % Lymph % (Auto) (20.0-40.0) % [place] % (Auto) (3.0-10.0) % Eos % (Auto) (1.0-5.0) % Baso % (Auto) (0.0-0.5) % Neut # (Auto) (2.00-7.50) K/uL Lymph # (Auto) (1.50-4.00) K/uL [place] # (Auto) (0.20-0.80) K/uL Eos # (Auto) (0.04-0.40) K/uL Baso # (Auto) (0.02-0.10) K/uL Sodium 138 (136-145) mmol/L Potassium 4.0 (3.5-5.1) mmol/L Chloride 101 (98-107) mmol/L Carbon Dioxide 28.5 D (21.0-32.0) mmol/L Anion Gap 12.5 (5.0-15.0) mmol/L BUN 17 (8-26) mg/dL Creatinine 0.96 D (0.55-1.02) mg/dL Est Cr Clr Drug Dosing 58.19 mL/min Estimated GFR (MDRD) > 60 (>60) MLS/MIN BUN/Creatinine Ratio 17.7 (6-25) Glucose 115 H (74-100) mg/dL Lactic Acid (0.4-2.0) mmol/L Calcium 8.5 (8.5-10.1) mg/dL Total Bilirubin 0.3 D (0.0-1.0) mg/dL AST 17 (15-37) U/L ALT 37 (12-78) U/L Alkaline Phosphatase 73 (46-116) U/L C-Reactive Protein 5.4 H (0.0-3.0) mg/L Total Protein 7.1 (6.4-8.2) g/dL Albumin 3.5 (3.4-5.0) g/dL Globulin 3.6 (2.2-4.2) g/dL Albumin/Globulin Ratio 1.0 (0.8-2.0) Amylase 51 (25-115) U/L Urine Color Yellow Urine Appearance Clear (CLEAR) Urine pH 7.0 (5.0-8.0) Ur Specific [place] 1.025 (1.003-1.030) Urine Protein Negative (NEGATIVE) mg/dL Urine Glucose (UA) Negative (NEGATIVE) mg/dL Urine Ketones Negative (NEGATIVE) mg/dL Urine Occult Blood Moderate H (NEGATIVE) Urine Nitrite Negative (NEGATIVE) Urine Bilirubin Negative (NEGATIVE) Urine Urobilinogen 0.2 (0.2-1.0) E.U./dL Ur Leukocyte Esterase Negative (NEGATIVE) Urine RBC 0-5 H /HPF Urine WBC 0-5 H /HPF Ur Epithelial Cells Rare /HPF Urine Bacteria Rare /HPF Urine HCG, Qual Negative (NEGATIVE) 11/14/19 11/14/19 Range/Units 12:20 12:29 WBC 12.1 H D (4.0-11.0) K/uL RBC 5.31 (3.80-5.80) M/uL Hgb 15.5 (11.5-16.5) g/dL Hct 45.0 (37.0-47.0) % MCV 85 (76-96) fL MCH 29.2 (27.0-32.0) pg MCHC 34.4 (31.0-35.0) g/dL RDW 13.5 (11.0-16.0) % Plt Count 235 (150-500) K/uL MPV 10.0 (6.0-10.0) fL Neut % (Auto) 57.6 (45.0-70.0) % Lymph % (Auto) 30.2 (20.0-40.0) % [place] % (Auto) 9.6 (3.0-10.0) % Eos % (Auto) 2.3 (1.0-5.0) % Baso % (Auto) 0.3 (0.0-0.5) % Neut # (Auto) 6.93 (2.00-7.50) K/uL Lymph # (Auto) 3.64 (1.50-4.00) K/uL [place] # (Auto) 1.16 H (0.20-0.80) K/uL Eos # (Auto) 0.28 (0.04-0.40) K/uL Baso # (Auto) 0.04 (0.02-0.10) K/uL Sodium (136-145) mmol/L Potassium (3.5-5.1) mmol/L Chloride (98-107) mmol/L Carbon Dioxide (21.0-32.0) mmol/L Anion Gap (5.0-15.0) mmol/L BUN (8-26) mg/dL Creatinine (0.55-1.02) mg/dL Est Cr Clr Drug Dosing mL/min Estimated GFR (MDRD) (>60) MLS/MIN BUN/Creatinine Ratio (6-25) Glucose (74-100) mg/dL Lactic Acid 0.9 (0.4-2.0) mmol/L Calcium (8.5-10.1) mg/dL Total Bilirubin (0.0-1.0) mg/dL AST (15-37) U/L ALT (12-78) U/L Alkaline Phosphatase (46-116) U/L C-Reactive Protein (0.0-3.0) mg/L Total Protein (6.4-8.2) g/dL Albumin (3.4-5.0) g/dL Globulin (2.2-4.2) g/dL Albumin/Globulin Ratio (0.8-2.0) Amylase (25-115) U/L Urine Color Urine Appearance (CLEAR) Urine pH (5.0-8.0) Ur Specific [place] (1.003-1.030) Urine Protein (NEGATIVE) mg/dL Urine Glucose (UA) (NEGATIVE) mg/dL Urine Ketones (NEGATIVE) mg/dL Urine Occult Blood (NEGATIVE) Urine Nitrite (NEGATIVE) Urine Bilirubin (NEGATIVE) Urine Urobilinogen (0.2-1.0) E.U./dL Ur Leukocyte Esterase (NEGATIVE) Urine RBC /HPF Urine WBC /HPF Ur Epithelial Cells /HPF Urine Bacteria /HPF Urine HCG, Qual (NEGATIVE) Med Orders - Current: Current Medications Acetaminophen (Tylenol) 650 mg PO Q4H PRN PRN Reason: analgesia/fever Last Admin: 11/14/19 12:10 Dose: 650 mg Hydromorphone HCl (Dilaudid) 0.5 mg IVPUSH Q20M PRN PRN Reason: Pain/Fever Last Admin: 11/14/19 10:36 Dose: 0.5 mg Ciprofloxacin/Dextrose 400 mg/ (Premix) 200 mls @ 200 mls/hr IV Q12HR [facility] Last Admin: 11/14/19 07:51 Dose: 200 mls/hr Metronidazole 500 mg/ Premix 100 mls @ 100 mls/hr IV Q8H [facility] Last Admin: 11/14/19 09:17 Dose: 100 mls/hr Potassium Chloride/Dextrose/Sod Cl (D5 1/2 Ns W/ 20 Meq/L Kcl) 1,000 mls @ 150 mls/hr IV ASDIRECTED [facility] Last Admin: 11/14/19 02:40 Dose: 150 mls/hr Lactobacillus Acidophilus (Acidolphilus Extra Strength) 1 tab PO DAILY [facility] Ondansetron HCl (Zofran) 4 mg IVPUSH Q6H PRN PRN Reason: Nausea/Vomiting Last Admin: 11/14/19 09:04 Dose: 4 mg Senna/Docusate Sodium (Senna Plus) 1 tab PO DAILY [facility] Discontinued Medications Diphenhydramine HCl (Benadryl) 50 mg IVPUSH ONETIME ONE Stop: 11/14/19 00:00 Last Admin: 11/14/19 00:33 Dose: 50 mg Diphenhydramine HCl (Benadryl) Confirm Administered Dose [address] ONE Stop: 11/14/19 00:41 Last Admin: 11/14/19 00:41 Dose: Not Given Diphenhydramine HCl (Benadryl) Confirm Administered Dose [address] ONE Stop: 11/14/19 00:45 Last Admin: 11/14/19 00:41 Dose: Not Given Hydromorphone HCl (Dilaudid) Confirm Administered Dose [address] ONE Stop: 11/14/19 01:19 Last Admin: 11/14/19 01:29 Dose: Not Given Hydromorphone HCl (Dilaudid) Confirm Administered Dose [address] ONE Stop: 11/14/19 07:35 Last Admin: 11/14/19 08:02 Dose: Not Given Sodium Chloride (Normal Saline) 1,000 mls @ 999 mls/hr IV .BOLUS ONE Stop: 11/14/19 00:56 Last Admin: 11/14/19 00:30 Dose: 999 mls/hr Metronidazole (Flagyl 500 Mg In Ns 100 Ml) Confirm Administered Dose 100 mls @ as directed .ROUTE .[facility] [[email or web address]MED ONE Stop: 11/14/19 01:18 Last Admin: 11/14/19 01:30 Dose: Not Given Ciprofloxacin/Dextrose (Cipro In D5w 400 Mg/200 Ml) Confirm Administered Dose 200 mls @ as directed .ROUTE .[facility] ONE Stop: 11/14/19 01:18 Last Admin: 11/14/19 02:52 Dose: 200 mls/hr Metronidazole (Flagyl 500 Mg In Ns 100 Ml) Confirm Administered Dose 100 mls @ as directed .ROUTE .[facility] ONE Stop: 11/14/19 07:20 Last Admin: 11/14/19 08:03 Dose: Not Given Ciprofloxacin/Dextrose (Cipro In D5w 400 Mg/200 Ml) Confirm Administered Dose 200 mls @ as directed .ROUTE .[facility] ONE Stop: 11/14/19 07:20 Last Admin: 11/14/19 08:02 Dose: Not Given Ketorolac Tromethamine (Toradol) 15 mg IVPUSH ONETIME ONE Stop: 11/13/19 23:59 Last Admin: 11/14/19 00:31 Dose: 15 mg Ketorolac Tromethamine (Toradol) Confirm Administered Dose 30 mg .ROUTE .[facility]- [facility] ONE Stop: 11/14/19 00:41 Last Admin: 11/14/19 00:41 Dose: Not Given Ondansetron HCl (Zofran) 4 mg IVPUSH ONETIME ONE Stop: 11/13/19 23:59 Last Admin: 11/14/19 00:35 Dose: 4 mg Ondansetron HCl (Zofran) Confirm Administered Dose 4 mg .ROUTE .[facility] ONE Stop: 11/14/19 00:41 Last Admin: 11/14/19 01:14 Dose: Not Given - Exam General: Alert, Oriented, No Acute Distress HEENT: Pupils Equal, EOMI, Mucous Membr. Moist/[place] Lungs: Normal Respiratory Effort GI/Abdominal Exam: Normal Bowel Sounds, Soft, No Distention, Tender (RLQ, improced from prior) Extremities: Normal Inspection, Non-Tender, Normal Capillary Refill Neurological: No New Focal Deficit Psy/Mental Status: Alert, Normal Affect, Normal Mood Sepsis Event Note - Evaluation Sepsis Screening Result: No Definite Risk - Focused Exam Vital Signs: Vital Signs Temp Pulse Resp BP Pulse Ox 11/14/19 12:00 98.9 F 77 16 117/66 97 11/14/19 08:24 16 109/70 11/14/19 04:41 97.7 F 73 16 103/54 L 99 Date Exam was Performed: 11/14/19 Time Exam was Performed: 14:32 - Problem List Review Problem List Initiated/Reviewed/Updated: Yes - My Orders Last 24 Hours: My Active Orders 11/13/19 23:56 HYDROmorphone [Dilaudid] 0.5 mg IVPUSH Q20M PRN 11/14/19 CULTURE MRSA SURVEY [RM] Routine 11/14/19 00:00 Abdomen Pelvis wo Cont [CT] Stat 11/14/19 00:49 May Shower [RC] ASDIRECTED Up ad Susi [RC] ASDIRECTED Acetaminophen [Tylenol] 650 mg PO Q4H PRN 11/14/19 00:50 Patient Status [ADT] Routine Vital Signs [RC] Q4H 11/14/19 00:51 DVT/VTE Prophylaxis Reflex [OM.PC] Per Unit Routine 11/14/19 00:53 Antiembolic Devices [RC] .Routine VTE/DVT Education [RC] Click to Edit Ondansetron [Zofran] 4 mg IVPUSH Q6H PRN 11/14/19 01:00 D5 1/2 NS w/ 20 mEq/L KCl 1,000 ml IV ASDIRECTED metroNIDAZOLE/Normal Saline [Flagyl 500 MG in NS 100 ML] 500 mg Premix Bag 1 bag IV Q8H 11/14/19 02:58 Code Status [Resuscitation Status] Routine 11/14/19 08:00 Ciprofloxacin in D5W [Cipro in D5W 400 MG/200 ML] 400 mg Premix Bag 1 bag IV Q12HR 11/14/19 13:30 Acidophilus/Lactobac Spor [Acidolphilus Extra Strength] 1 tab PO DAILY Docusate Sodium/Sennosides [Senna Plus] 1 tab PO DAILY 11/14/19 Breakfast Clear Liquid Diet [DIET]
--- NOTE | 2019-11-14 15:07 | PCM.PN ---
- General Info Date of Service: 11/15/19 Subjective Update: Olivia came to the emergency department last day due to severe abdominal pain. She was not able to stand up straight due to discomfort in her right lower quadrant. She had been doing well around 9:30 PM when she went to bed. In fact she had a favorite meal that night. She woke woke up with pain which eventually shifted towards her right lower quadrant and became quite severe. CT scan was obtained which ruled out appendicitis and confirmed diverticulitis of the right side of her colon. She denied any recent diarrhea, melena, or hematochezia. Overnight, she has had pretty decent improvement in her symptoms overall. She still feels pretty sick. She is really not ambulatory. At this point, she continues to have some nausea on and off, but seems to be tolerating her opioid better per her nurse. She is certainly interested in advancing her diet. She really has no new concerns today. - Patient Data Vitals - Most Recent: Last Vital Signs Temp 98.9 F 11/14/19 12:00 Pulse 77 11/14/19 12:00 Resp 16 11/14/19 12:00 BP 117/66 11/14/19 12:00 Pulse Ox 97 11/14/19 12:00 Weight - Most Recent: 212 lb 1 oz I&O - Last 24 Hours: Intake & Output 11/13/19 11/14/19 11/14/19 22:59 06:59 14:59 Intake Total 3550 Balance 3550 Lab Results Last 24 Hours: Laboratory Results - last 24 hr 11/14/19 11/14/19 11/14/19 Range/Units 00:10 01:46 01:46 WBC (4.0-11.0) K/uL RBC (3.80-5.80) M/uL Hgb (11.5-16.5) g/dL Hct (37.0-47.0) % MCV (76-96) fL MCH (27.0-32.0) pg MCHC (31.0-35.0) g/dL RDW (11.0-16.0) % Plt Count (150-500) K/uL MPV (6.0-10.0) fL Neut % (Auto) (45.0-70.0) % Lymph % (Auto) (20.0-40.0) % [place] % (Auto) (3.0-10.0) % Eos % (Auto) (1.0-5.0) % Baso % (Auto) (0.0-0.5) % Neut # (Auto) (2.00-7.50) K/uL Lymph # (Auto) (1.50-4.00) K/uL [place] # (Auto) (0.20-0.80) K/uL Eos # (Auto) (0.04-0.40) K/uL Baso # (Auto) (0.02-0.10) K/uL Sodium 138 (136-145) mmol/L Potassium 4.0 (3.5-5.1) mmol/L Chloride 101 (98-107) mmol/L Carbon Dioxide 28.5 D (21.0-32.0) mmol/L Anion Gap 12.5 (5.0-15.0) mmol/L BUN 17 (8-26) mg/dL Creatinine 0.96 D (0.55-1.02) mg/dL Est Cr Clr Drug Dosing 58.19 mL/min Estimated GFR (MDRD) > 60 (>60) MLS/MIN BUN/Creatinine Ratio 17.7 (6-25) Glucose 115 H (74-100) mg/dL Lactic Acid (0.4-2.0) mmol/L Calcium 8.5 (8.5-10.1) mg/dL Total Bilirubin 0.3 D (0.0-1.0) mg/dL AST 17 (15-37) U/L ALT 37 (12-78) U/L Alkaline Phosphatase 73 (46-116) U/L C-Reactive Protein 5.4 H (0.0-3.0) mg/L Total Protein 7.1 (6.4-8.2) g/dL Albumin 3.5 (3.4-5.0) g/dL Globulin 3.6 (2.2-4.2) g/dL Albumin/Globulin Ratio 1.0 (0.8-2.0) Amylase 51 (25-115) U/L Urine Color Yellow Urine Appearance Clear (CLEAR) Urine pH 7.0 (5.0-8.0) Ur Specific [address] 1.025 (1.003-1.030) Urine Protein Negative (NEGATIVE) mg/dL Urine Glucose (UA) Negative (NEGATIVE) mg/dL Urine Ketones Negative (NEGATIVE) mg/dL Urine Occult Blood Moderate H (NEGATIVE) Urine Nitrite Negative (NEGATIVE) Urine Bilirubin Negative (NEGATIVE) Urine Urobilinogen 0.2 (0.2-1.0) E.U./dL Ur Leukocyte Esterase Negative (NEGATIVE) Urine RBC 0-5 H /HPF Urine WBC 0-5 H /HPF Ur Epithelial Cells Rare /HPF Urine Bacteria Rare /HPF Urine HCG, Qual Negative (NEGATIVE) 11/14/19 11/14/19 Range/Units 12:20 12:29 WBC 12.1 H D (4.0-11.0) K/uL RBC 5.31 (3.80-5.80) M/uL Hgb 15.5 (11.5-16.5) g/dL Hct 45.0 (37.0-47.0) % MCV 85 (76-96) fL MCH 29.2 (27.0-32.0) pg MCHC 34.4 (31.0-35.0) g/dL RDW 13.5 (11.0-16.0) % Plt Count 235 (150-500) K/uL MPV 10.0 (6.0-10.0) fL Neut % (Auto) 57.6 (45.0-70.0) % Lymph % (Auto) 30.2 (20.0-40.0) % [place] % (Auto) 9.6 (3.0-10.0) % Eos % (Auto) 2.3 (1.0-5.0) % Baso % (Auto) 0.3 (0.0-0.5) % Neut # (Auto) 6.93 (2.00-7.50) K/uL Lymph # (Auto) 3.64 (1.50-4.00) K/uL [place] # (Auto) 1.16 H (0.20-0.80) K/uL Eos # (Auto) 0.28 (0.04-0.40) K/uL Baso # (Auto) 0.04 (0.02-0.10) K/uL Sodium (136-145) mmol/L Potassium (3.5-5.1) mmol/L Chloride (98-107) mmol/L Carbon Dioxide (21.0-32.0) mmol/L Anion Gap (5.0-15.0) mmol/L BUN (8-26) mg/dL Creatinine (0.55-1.02) mg/dL Est Cr Clr Drug Dosing mL/min Estimated GFR (MDRD) (>60) MLS/MIN BUN/Creatinine Ratio (6-25) Glucose (74-100) mg/dL Lactic Acid 0.9 (0.4-2.0) mmol/L Calcium (8.5-10.1) mg/dL Total Bilirubin (0.0-1.0) mg/dL AST (15-37) U/L ALT (12-78) U/L Alkaline Phosphatase (46-116) U/L C-Reactive Protein (0.0-3.0) mg/L Total Protein (6.4-8.2) g/dL Albumin (3.4-5.0) g/dL Globulin (2.2-4.2) g/dL Albumin/Globulin Ratio (0.8-2.0) Amylase (25-115) U/L Urine Color Urine Appearance (CLEAR) Urine pH (5.0-8.0) Ur Specific [address] (1.003-1.030) Urine Protein (NEGATIVE) mg/dL Urine Glucose (UA) (NEGATIVE) mg/dL Urine Ketones (NEGATIVE) mg/dL Urine Occult Blood (NEGATIVE) Urine Nitrite (NEGATIVE) Urine Bilirubin (NEGATIVE) Urine Urobilinogen (0.2-1.0) E.U./dL Ur Leukocyte Esterase (NEGATIVE) Urine RBC /HPF Urine WBC /HPF Ur Epithelial Cells /HPF Urine Bacteria /HPF Urine HCG, Qual (NEGATIVE) Med Orders - Current: Current Medications Acetaminophen (Tylenol) 650 mg PO Q4H PRN PRN Reason: analgesia/fever Last Admin: 11/14/19 12:10 Dose: 650 mg Hydromorphone HCl (Dilaudid) 0.5 mg IVPUSH Q20M PRN PRN Reason: Pain/Fever Last Admin: 11/14/19 10:36 Dose: 0.5 mg Ciprofloxacin/Dextrose 400 mg/ (Premix) 200 mls @ 200 mls/hr IV Q12HR [facility] Last Admin: 11/14/19 07:51 Dose: 200 mls/hr Metronidazole 500 mg/ Premix 100 mls @ 100 mls/hr IV Q8H [facility] Last Admin: 11/14/19 09:17 Dose: 100 mls/hr Potassium Chloride/Dextrose/Sod Cl (D5 1/2 Ns W/ 20 Meq/L Kcl) 1,000 mls @ 150 mls/hr IV ASDIRECTED [facility] Last Admin: 11/14/19 02:40 Dose: 150 mls/hr Lactobacillus Acidophilus (Acidolphilus Extra Strength) 1 tab PO DAILY [facility] Last Admin: 11/14/19 13:45 Dose: 1 tab Ondansetron HCl (Zofran) 4 mg IVPUSH Q6H PRN PRN Reason: Nausea/Vomiting Last Admin: 11/14/19 09:04 Dose: 4 mg Senna (Senna) 8.6 mg PO DAILY [facility] Last Admin: 11/14/19 14:59 Dose: Not Given Discontinued Medications Diphenhydramine HCl (Benadryl) 50 mg IVPUSH ONETIME ONE Stop: 11/14/19 00:00 Last Admin: 11/14/19 00:33 Dose: 50 mg Diphenhydramine HCl (Benadryl) Confirm Administered Dose 50 mg .ROUTE .[facility] ONE Stop: 11/14/19 00:41 Last Admin: 11/14/19 00:41 Dose: Not Given Diphenhydramine HCl (Benadryl) Confirm Administered Dose 50 mg .ROUTE .[facility] ONE Stop: 11/14/19 00:45 Last Admin: 11/14/19 00:41 Dose: Not Given Hydromorphone HCl (Dilaudid) Confirm Administered Dose 2 mg .ROUTE .[facility] ONE Stop: 11/14/19 01:19 Last Admin: 11/14/19 01:29 Dose: Not Given Hydromorphone HCl (Dilaudid) Confirm Administered Dose 2 mg .ROUTE .[facility] ONE Stop: 11/14/19 07:35 Last Admin: 11/14/19 08:02 Dose: Not Given Sodium Chloride (Normal Saline) 1,000 mls @ 999 mls/hr IV .BOLUS ONE Stop: 11/14/19 00:56 Last Admin: 11/14/19 00:30 Dose: 999 mls/hr Metronidazole (Flagyl 500 Mg In Ns 100 Ml) Confirm Administered Dose 100 mls @ as directed .ROUTE .[facility] ONE Stop: 11/14/19 01:18 Last Admin: 11/14/19 01:30 Dose: Not Given Ciprofloxacin/Dextrose (Cipro In D5w 400 Mg/200 Ml) Confirm Administered Dose 200 mls @ as directed .ROUTE .[facility] ONE Stop: 11/14/19 01:18 Last Admin: 11/14/19 02:52 Dose: 200 mls/hr Metronidazole (Flagyl 500 Mg In Ns 100 Ml) Confirm Administered Dose 100 mls @ as directed .ROUTE .[facility] ONE Stop: 11/14/19 07:20 Last Admin: 11/14/19 08:03 Dose: Not Given Ciprofloxacin/Dextrose (Cipro In D5w 400 Mg/200 Ml) Confirm Administered Dose 200 mls @ as directed .ROUTE .[facility] ONE Stop: 11/14/19 07:20 Last Admin: 11/14/19 08:02 Dose: Not Given Ketorolac Tromethamine (Toradol) 15 mg IVPUSH ONETIME ONE Stop: 11/13/19 23:59 Last Admin: 11/14/19 00:31 Dose: 15 mg Ketorolac Tromethamine (Toradol) Confirm Administered Dose 30 mg .ROUTE .[facility]- [facility] ONE Stop: 11/14/19 00:41 Last Admin: 11/14/19 00:41 Dose: Not Given Lactobacillus Acidophilus (Acidolphilus Extra Strength) Confirm Administered Dose 1 tab .ROUTE .[facility] ONE Stop: 11/14/19 13:36 Last Admin: 11/14/19 14:41 Dose: Not Given Ondansetron HCl (Zofran) 4 mg IVPUSH ONETIME ONE Stop: 11/13/19 23:59 Last Admin: 11/14/19 00:35 Dose: 4 mg Ondansetron HCl (Zofran) Confirm Administered Dose 4 mg .ROUTE .[facility] ONE Stop: 11/14/19 00:41 Last Admin: 11/14/19 01:14 Dose: Not Given Senna (Senna) Confirm Administered Dose 8.6 mg .ROUTE .[facility] ONE Stop: 11/14/19 13:36 Last Admin: 11/14/19 14:42 Dose: Not Given Senna/Docusate Sodium (Senna Plus) 1 tab PO DAILY [facility] Last Admin: 11/14/19 13:46 Dose: Not Given - Exam General: Alert, Oriented HEENT: EOMI Lungs: Clear to Auscultation, Normal Respiratory Effort Cardiovascular: Regular Rate, Regular Rhythm GI/Abdominal Exam: Soft, No Distention, No Mass, Tender (Moderate tenderness to mild palpation centered over the right lower quadrant which seems to be improved overall from the previous night somewhat and certainly no worsening or rebound is apparent) (Female) Exam: Normal Speculum Exam Back Exam: Normal Inspection Extremities: Normal Inspection, Non-Tender, No Pedal Edema, Normal Capillary Refill Skin: Warm, Dry, Intact Psy/Mental Status: Alert, Normal Affect, Normal Mood Sepsis Event Note - Evaluation Sepsis Screening Result: No Definite Risk - Focused Exam Vital Signs: Vital Signs Temp Pulse Resp BP Pulse Ox 11/14/19 12:00 98.9 F 77 16 117/66 97 11/14/19 08:24 16 109/70 11/14/19 04:41 97.7 F 73 16 103/54 L 99 Date Exam was Performed: 11/19/19 Time Exam was Performed: 01:04 - Problem List Review Problem List Initiated/Reviewed/Updated: Yes - My Orders Last 24 Hours: My Active Orders 11/13/19 23:56 HYDROmorphone [Dilaudid] 0.5 mg IVPUSH Q20M PRN 11/14/19 CULTURE MRSA SURVEY [RM] Routine 11/14/19 00:00 Abdomen Pelvis wo Cont [CT] Stat 11/14/19 00:49 May Shower [RC] ASDIRECTED Up ad Susi [RC] ASDIRECTED Acetaminophen [Tylenol] 650 mg PO Q4H PRN 11/14/19 00:50 Patient Status [ADT] Routine Vital Signs [RC] Q4H 11/14/19 00:51 DVT/VTE Prophylaxis Reflex [OM.PC] Per Unit Routine 11/14/19 00:53 Antiembolic Devices [RC] .Routine VTE/DVT Education [RC] Click to Edit Ondansetron [Zofran] 4 mg IVPUSH Q6H PRN 11/14/19 01:00 D5 1/2 NS w/ 20 mEq/L KCl 1,000 ml IV ASDIRECTED metroNIDAZOLE/Normal Saline [Flagyl 500 MG in NS 100 ML] 500 mg Premix Bag 1 bag IV Q8H 11/14/19 02:58 Code Status [Resuscitation Status] Routine 11/14/19 08:00 Ciprofloxacin in D5W [Cipro in D5W 400 MG/200 ML] 400 mg Premix Bag 1 bag IV Q12HR 11/14/19 13:30 Acidophilus/Lactobac Spor [Acidolphilus Extra Strength] 1 tab PO DAILY 11/14/19 13:45 Sennosides [Senna] 8.6 mg PO DAILY 11/14/19 Breakfast Clear Liquid Diet [DIET] - Plan Plan:: At this point, Olivia appears somewhat more miserable. It seems like this is multifactorial. Certainly, she has had quite a bit of encouragement and advancing her diet. She seems to have a bit of a headache. She has had a couple of emesis, after apparently tolerating her oral intake and opioid well. For this reason, she was provided with a different antibiotic and analgesic regimen, and encouraged to hold off on further encouragement of her oral intake until a more bland diet is tolerated, and she starts being able to ambulate more and pass flatus or accomplish a bowel movement.
[2019-11-14] MEDS ORDERED: Magnesium Hydroxide 400 MG/5 ML Susp 30 ML Cup PO ONE (21:02)
[2019-11-15] MEDS ORDERED: metroNIDAZOLE/Normal Saline 100 ML ONE (00:38)
[2019-11-15] MEDS: metroNIDAZOLE/Normal Saline 500 MG in Premix Bag 1 BAG IV SCH ×2 (01:10→09:47)
[2019-11-15] MEDS: Acetaminophen 325 MG Tab PO PRN ×3 (01:14→11:21)
[2019-11-15] MEDS ORDERED: HYDROmorphone 2 MG/ML SDV ONE (06:27)
[2019-11-15] MEDS: HYDROmorphone 2 MG/ML Syringe IVPUSH PRN (06:32)
[2019-11-15] MEDS: Lactobacillus Acidophilus/Lactobacillus Sporogenes (Probiotic) Tab PO SCH (08:08)
[2019-11-15] MEDS: Ciprofloxacin in D5W 400 MG in Premix Bag 1 BAG IV SCH ×2 (08:30)
[2019-11-15] MEDS: Ondansetron 4 MG/2 ML SDV IVPUSH PRN (09:35)
[2019-11-15] MEDS ORDERED: Prochlorperazine 10 MG in Sodium Chloride 0.9% 50 ML IV ONE (13:55)
[2019-11-15] MEDS ORDERED: Ketorolac 30 MG/ML SDV IVPUSH ONE (13:56)
[2019-11-15] MEDS ORDERED: fentaNYL 100 MCG/2 ML SDV IVPUSH PRN (13:57)
[2019-11-15] MEDS ORDERED: D5 1/2 NS w/ 20 mEq/L KCl 1,000 ML IV SCH (14:00)
[2019-11-15] MEDS: diphenhydrAMINE 50 MG/ML SDV IVPUSH SCH ×2 (15:51→21:02)
[2019-11-15] MEDS: Ciprofloxacin 250 MG Tab PO SCH (20:32)
[2019-11-16] MEDS: diphenhydrAMINE 50 MG/ML SDV IVPUSH SCH ×2 (01:59→11:17)
[2019-11-16] MEDS ORDERED: Ciprofloxacin in D5W 400 MG in Premix Bag 1 BAG IV ONE ×2 (11:02)
[2019-11-16] MEDS: Ciprofloxacin 250 MG Tab PO SCH (11:18)
[2019-11-16] MEDS ORDERED: metroNIDAZOLE 500 MG Tab PO SCH (12:00)
[2019-11-16 13:56] VITALS: BP 122/80; PULSE 62
--- NOTE | 2019-11-17 09:19 | CT ---
DATE OF SERVICE: 11/14/2019 CLINICAL DATA: RLQ pain UNENHANCED ABDOMEN AND PELVIC CT: Multislice acquisition through the abdomen and pelvis without IV or oral contrast was performed. Comparison is made to a prior exam dated 04/04/2019. The lung bases are clear. The liver is normal size with homogeneous attenuation. No focal hepatic lesions. Patient status post cholecystectomy. Spleen appears normal. The pancreas appears normal. The right and left adrenals appear normal. The right and left kidneys appear normal. No nephrocalcinosis or nephrolithiasis. No hydronephrosis or hydroureter. The bladder is partially fluid-filled. It appears normal. There is a subtle low density lesion in the anterior uterine segment inferiorly most likely representing a uterine leiomyoma. This otherwise appears unremarkable. No evidence of appendicitis. There is diverticulosis in the descending and sigmoid colon. Minimal pericolonic fat stranding adjacent to proximal sigmoid colon consistent with diverticulitis. No evidence of diverticular abscess. No free air. No free fluid. No dilated loops of bowel. No adenopathy. No aortic aneurysm. Impression: Findings consistent with mild or early sigmoid diverticulitis. No evidence of diverticular abscess. Dictated and Authenticated by: Alpesh Ness MD 11/14/2019 8:50AM Central Time [facility]
--- NOTE | 2019-11-19 01:53 | PCM.DCSUM1 ---
Discharge Summary - Discharge Data Discharge Date: 11/16/19 Discharge Disposition: Home, Self-Care 01 Condition: Good - Referral to Home Health Primary Care Physician: PCP None - Patient Instructions Diet: Regular Diet as Tolerated Activity: As Tolerated - Discharge Plan *PRESCRIPTION DRUG MONITORING PROGRAM REVIEWED*: Not Applicable *COPY OF PRESCRIPTION DRUG MONITORING REPORT IN PATIENT LASHONDA: Not Applicable Home Medications: Home Meds Albuterol Sulfate [Ventolin Hfa] 1 puff INH BID PRN 07/07/17 [History] Albuterol/Ipratropium [Combivent Respimat] 1 puff INH BID PRN 07/07/17 [History] SUMAtriptan [Imitrex] 50 mg PO ASDIRECTED PRN 07/07/17 [History] Patient Handouts: Diverticulitis, [id number], Ciprofloxacin tablets, Metronidazole tablets or capsules Forms: ED Department Discharge, ED Return to Work/School Form Referrals: PCP,None [Primary Care Provider] - - Discharge Summary/Plan Comment DC Time >30 min.: No Discharge Summary/Plan Comment: Olivia was noted to have CT proven diverticulitis of her right colon on 416. She was admitted and placed on IV antimicrobials. She had some initial improvement, but then things seem to worsen a bit. It seemed that she was trying to force things as far as being able to eat in order to be discharged home in time for her birthday. She subsequently had some emesis after eating. It was felt like this was not related to her opioid per RN. Later that afternoon, she appeared more miserable, and had kind of a headache. For this reason, she was changed to an alternate antiemetic, namely Compazine. She slept well. She will was provided with fentanyl for pain control, but really had marketed relief by the following morning. Her diet was advanced, and she tolerated ambulating the hallway without issues. At this point we will continue with Cipro 500 mg p.o. twice daily for 7 additional days and metronidazole 500 mg p.o., also twice daily, for the sake of simplicity, also for 7 days. She promises to keep us informed if she fails to maintain her excellent progress. - General Info Date of Service: 11/16/19 Subjective Update: Olivia had an excellent birthday. She awoke and felt great, and requested some toast. She had this, and was able to ambulate without any issues. She was provided with a bath. Her bowel sounds and flatus were excellent. Her diet was advanced. She was provided with that dose of IV Cipro, and tolerated this without any issues. - Patient Data Vitals - Most Recent: Last Vital Signs Temp 98.0 F 11/16/19 12:00 Pulse 62 11/16/19 12:00 Resp 14 11/16/19 12:00 BP 122/80 11/16/19 12:00 Pulse Ox 97 11/16/19 12:00 Weight - Most Recent: 212 lb 1 oz Med Orders - Current: Current Medications Discontinued Medications Acetaminophen (Tylenol) 650 mg PO Q4H PRN PRN Reason: analgesia/fever Last Admin: 11/15/19 11:21 Dose: 650 mg Ciprofloxacin (Ciprofloxacin Hcl) 250 mg PO BID [facility] Last Admin: 11/16/19 11:18 Dose: Not Given Diphenhydramine HCl (Benadryl) 50 mg IVPUSH ONETIME ONE Stop: 11/14/19 00:00 Last Admin: 11/14/19 00:33 Dose: 50 mg Diphenhydramine HCl (Benadryl) Confirm Administered Dose 50 mg .ROUTE .STK-MED ONE Stop: 11/14/19 00:41 Last Admin: 11/14/19 00:41 Dose: Not Given Diphenhydramine HCl (Benadryl) Confirm Administered Dose 50 mg .ROUTE .STK-MED ONE Stop: 11/14/19 00:45 Last Admin: 11/14/19 00:41 Dose: Not Given Diphenhydramine HCl (Benadryl) 25 mg IVPUSH Q6H [facility] Last Admin: 11/16/19 11:17 Dose: Not Given Fentanyl (Sublimaze) 25 mcg IVPUSH Q6H PRN PRN Reason: Pain Hydromorphone HCl (Dilaudid) 0.5 mg IVPUSH Q20M PRN PRN Reason: Pain/Fever Last Admin: 11/15/19 06:32 Dose: 0.5 mg Hydromorphone HCl (Dilaudid) Confirm Administered Dose 2 mg .ROUTE .STK-MED ONE Stop: 11/14/19 01:19 Last Admin: 11/14/19 01:29 Dose: Not Given Hydromorphone HCl (Dilaudid) Confirm Administered Dose 2 mg .ROUTE .[facility] ONE Stop: 11/14/19 07:35 Last Admin: 11/14/19 08:02 Dose: Not Given Hydromorphone HCl (Dilaudid) Confirm Administered Dose [address] ONE Stop: 11/14/19 19:39 Last Admin: 11/14/19 20:00 Dose: Not Given Hydromorphone HCl (Dilaudid) Confirm Administered Dose 2 mg .ROUTE .[facility] ONE Stop: 11/15/19 06:28 Last Admin: 11/15/19 06:32 Dose: Not Given Sodium Chloride (Normal Saline) 1,000 mls @ 999 mls/hr IV .BOLUS ONE Stop: 11/14/19 00:56 Last Admin: 11/14/19 00:30 Dose: 999 mls/hr Ciprofloxacin/Dextrose 400 mg/ (Premix) 200 mls @ 200 mls/hr IV Q12HR [facility] Last Admin: 11/15/19 08:30 Dose: 200 mls/hr Metronidazole 500 mg/ Premix 100 mls @ 100 mls/hr IV Q8H [facility] Last Admin: 11/15/19 09:47 Dose: 100 mls/hr Potassium Chloride/Dextrose/Sod Cl (D5 1/2 Ns W/ 20 Meq/L Kcl) 1,000 mls @ 150 mls/hr IV ASDIRECTED [facility] Last Admin: 11/14/19 02:40 Dose: 150 mls/hr Metronidazole (Flagyl 500 Mg In Ns 100 Ml) Confirm Administered Dose 100 mls @ as directed .ROUTE .[facility] ONE Stop: 11/14/19 01:18 Last Admin: 11/14/19 01:30 Dose: Not Given Ciprofloxacin/Dextrose (Cipro In D5w 400 Mg/200 Ml) Confirm Administered Dose 200 mls @ as directed .ROUTE .[facility] ONE Stop: 11/14/19 01:18 Last Admin: 11/14/19 02:52 Dose: 200 mls/hr Metronidazole (Flagyl 500 Mg In Ns 100 Ml) Confirm Administered Dose 100 mls @ as directed .ROUTE .[facility] ONE Stop: 11/14/19 07:20 Last Admin: 11/14/19 08:03 Dose: Not Given Ciprofloxacin/Dextrose (Cipro In D5w 400 Mg/200 Ml) Confirm Administered Dose 200 mls @ as directed .ROUTE .ST-MED ONE Stop: 11/14/19 07:20 Last Admin: 11/14/19 08:02 Dose: Not Given Metronidazole (Flagyl 500 Mg In Ns 100 Ml) Confirm Administered Dose 100 mls @ as directed .ROUTE .[facility] ONE Stop: 11/14/19 17:27 Last Admin: 11/14/19 17:36 Dose: Not Given Ciprofloxacin/Dextrose (Cipro In D5w 400 Mg/200 Ml) Confirm Administered Dose 200 mls @ as directed .ROUTE .[facility] ONE Stop: 11/14/19 19:30 Last Admin: 11/14/19 20:00 Dose: Not Given Metronidazole (Flagyl 500 Mg In Ns 100 Ml) Confirm Administered Dose 100 mls @ as directed .ROUTE .[facility] ONE Stop: 11/15/19 00:39 Last Admin: 11/15/19 01:11 Dose: Not Given Potassium Chloride/Dextrose/Sod Cl (D5 1/2 Ns W/ 20 Meq/L Kcl) 1,000 mls @ 125 mls/hr IV ASDIRECTED [facility] Prochlorperazine Edisylate 10 (mg/ Sodium Chloride) 52 mls @ 150 mls/hr IV ONETIME ONE Stop: 11/15/19 14:15 Last Admin: 11/15/19 15:31 Dose: 150 mls/hr Ciprofloxacin/Dextrose 400 mg/ (Premix) 200 mls @ 200 mls/hr IV ONETIME ONE Stop: 11/16/19 12:01 Last Admin: 11/16/19 11:45 Dose: 200 mls/hr Ketorolac Tromethamine (Toradol) 15 mg IVPUSH ONETIME ONE Stop: 11/13/19 23:59 Last Admin: 11/14/19 00:31 Dose: 15 mg Ketorolac Tromethamine (Toradol) Confirm Administered Dose [address] ONE Stop: 11/14/19 00:41 Last Admin: 11/14/19 00:41 Dose: Not Given Ketorolac Tromethamine (Toradol) 30 mg IVPUSH ONETIME ONE Stop: 11/15/19 13:57 Last Admin: 11/15/19 15:32 Dose: 30 mg Lactobacillus Acidophilus (Acidolphilus Extra Strength) 1 tab PO DAILY [facility] Last Admin: 11/15/19 08:08 Dose: 1 tab Lactobacillus Acidophilus (Acidolphilus Extra Strength) Confirm Administered Dose 1 tab .ROUTE .STK-MED ONE Stop: 11/14/19 13:36 Last Admin: 11/14/19 14:41 Dose: Not Given Magnesium Hydroxide (Milk Of Magnesia) 30 ml PO ONETIME ONE Stop: 11/14/19 21:03 Last Admin: 11/15/19 01:09 Dose: 30 ml Metronidazole (Flagyl) 500 mg PO QID [facility] Last Admin: 11/16/19 11:45 Dose: 500 mg Ondansetron HCl (Zofran) 4 mg IVPUSH ONETIME ONE Stop: 11/13/19 23:59 Last Admin: 11/14/19 00:35 Dose: 4 mg Ondansetron HCl (Zofran) Confirm Administered Dose 4 mg .ROUTE .STK-MED ONE Stop: 11/14/19 00:41 Last Admin: 11/14/19 01:14 Dose: Not Given Ondansetron HCl (Zofran) 4 mg IVPUSH Q6H PRN PRN Reason: Nausea/Vomiting Last Admin: 11/15/19 09:35 Dose: 4 mg Senna (Senna) Confirm Administered Dose 8.6 mg .ROUTE .STK-MED ONE Stop: 11/14/19 13:36 Last Admin: 11/14/19 14:42 Dose: Not Given Senna (Senna) 8.6 mg PO DAILY [facility] Last Admin: 11/14/19 14:59 Dose: Not Given Senna/Docusate Sodium (Senna Plus) 1 tab PO DAILY [facility] Last Admin: 11/14/19 13:46 Dose: Not Given - Exam General: Reports: Alert, Oriented HEENT: Reports: Pupils Equal, Pupils Reactive, EOMI, Mucous Membr. Moist/[place] Lungs: Reports: Clear to Auscultation, Normal Respiratory Effort Cardiovascular: Reports: Regular Rate, Regular Rhythm GI/Abdominal Exam: Normal Bowel Sounds, Soft, Non-Tender Extremities: Normal Inspection, Normal Range of Motion, Non-Tender Psy/Mental Status: Reports: Alert, Normal Affect, Normal Mood
== END 2019-11-16 13:40 | disposition home or self-care (01) | DRG 392 ==
LOC: LB.ED 23:39 → LB.MS 11-14 00:49 → UNDOADMIN 11-14 01:22 → LB.MS 11-14 01:22
PROVIDERS: ADMIT Family Medicine; ATTEND Family Medicine
DX: K57.92 Diverticulitis of intestine, part unspecified, without perforation or abscess without bleeding (principal); K57.32 Diverticulitis of large intestine without perforation or abscess without bleeding; G43.909 Migraine, unspecified, not intractable, without status migrainosus; J45.909 Unspecified asthma, uncomplicated; G43.709 Chronic migraine without aura, not intractable, without status migrainosus; Z79.899 Other long term (current) drug therapy; Z88.0 Allergy status to penicillin; Z90.49 Acquired absence of other specified parts of digestive tract
CPT/HCPCS: 36415; 74176; 80048; 80053; 81001; 81025; 82150; 83605; 85025; 86140; 96374; 96375; 99221; 99231; 99238; 99285-25; A9270-GY; J0744; J0780; J1170; J1200; J1885; J2405; J3480; J3490; J7030; J7050

== ENCOUNTER 2019-12-09 16:49 | Emergency (ER) | payer MEDICARE, MEDICAID ==
[2019-12-09 17:13] VITALS: BP 129/93; PULSE 79
[2019-12-09] MEDS: Ketorolac 60 MG/2 ML SDV IM ONE (17:30)
[2019-12-09] MEDS: Cyclobenzaprine 10 MG Tab PO ONE (17:31)
--- NOTE | 2019-12-09 17:37 | EDM.PDOC ---
ED HPI GENERAL MEDICAL PROBLEM - General Chief Complaint: Abdominal Pain Stated Complaint: SIDE PAIND DOWN LEG Time Seen by Provider: 12/09/19 17:05 - History of Present Illness INITIAL COMMENTS - FREE TEXT/NARRATIVE: Tara presents back to the hospital for complaint of abdominal pain. She states that she had the onset Sunday on a gradual basis of pain localized to her right flank. She describes this as even with her mid axillary line, but having some radiation into her right upper and possibly outer thigh. He denies any issues with fevers or chills. She has had no nausea or vomiting. She has noticed no change in her bowel habits. She adamantly denies any urinary symptoms. She is status post tubal ligation and cholecystectomy. She does not use alcohol or drugs. She denies any other concurrent symptoms, but does feel that her muscles are tight in her back where the pain also seems to radiate quite a bit. 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: Reports: Neurological History: Reports: Migraines - Infectious Disease History Infectious Disease History: Reports: Chicken Pox - Past Surgical History Respiratory Surgical History: Reports: None GI Surgical History: Reports: Cholecystectomy Female Surgical History: Reports: Section, Tubal Ligation Neurological Surgical History: Reports: None Social & Family History - Family History Family Medical History: Noncontributory - Tobacco Use Smoking Status *Q: Never Smoker Second Hand Smoke Exposure: Yes - Caffeine Use Caffeine Use: Reports: Soda - Recreational Drug Use Recreational Drug Use: No ED ROS GENERAL - Review of Systems Review Of Systems: Comprehensive ROS is negative, except as noted in HPI. ED EXAM, GENERAL - Physical Exam Exam: See Below Exam Limited By: No Limitations General Appearance: Alert, WD/WN, No Apparent Distress Eye Exam: Bilateral Eye: EOMI, Normal Inspection Ears: Hearing Grossly Normal Throat/Mouth: Normal Voice, No Airway Compromise Head: Atraumatic, Normocephalic Neck: Normal Inspection, Supple, Non-Tender, Full Range of Motion Respiratory/Chest: No Respiratory Distress, Lungs Clear, Normal Breath Sounds. No: Rales, Rhonchi, Wheezing Cardiovascular: Regular Rate, Rhythm. No: No Murmur GI/Abdominal: Soft, No Distention, Other (Somewhat hypoactive bowel sounds with diffuse tenderness mostly over the midepigastrium and also cannot rule out right -sided CVA tenderness, as well as some element of tenderness along her right subcostal margin and certainly no rebound or underlying mass is present) Back Exam: Normal Inspection, Full Range of Motion, Muscle Spasm (Primarily right-sided with this discomfort reproduced upon superficial palpation), Other ( No rash) Neurological: Alert, Oriented, CN II-XII Intact, Normal Cognition, No Motor/ Sensory Deficits Psychiatric: Normal Affect, Normal Mood Course - Vital Signs Last Recorded V/S: Last Vital Signs Temp 98 F 12/09/19 17:12 Pulse 79 12/09/19 17:12 Resp 18 12/09/19 17:12 BP 129/93 H 12/09/19 17:12 Pulse Ox 97 12/09/19 17:12 - Orders/Labs/Meds Labs: Laboratory Tests 12/09/19 12/09/19 Range/Units 17:40 17:40 WBC 12.4 H D (4.0-11.0) K/uL RBC 5.16 (3.80-5.80) M/uL Hgb 15.1 (11.5-16.5) g/dL Hct 43.6 (37.0-47.0) % MCV 85 (76-96) fL MCH 29.3 (27.0-32.0) pg MCHC 34.6 (31.0-35.0) g/dL RDW 13.5 (11.0-16.0) % Plt Count 220 (150-500) K/uL MPV 9.8 (6.0-10.0) fL Neut % (Auto) 67.7 (45.0-70.0) % Lymph % (Auto) 21.9 (20.0-40.0) % Irion % (Auto) 9.2 (3.0-10.0) % Eos % (Auto) 1.0 (1.0-5.0) % Baso % (Auto) 0.2 (0.0-0.5) % Neut # (Auto) 8.37 H (2.00-7.50) K/uL Lymph # (Auto) 2.71 (1.50-4.00) K/uL Irion # (Auto) 1.14 H (0.20-0.80) K/uL Eos # (Auto) 0.12 (0.04-0.40) K/uL Baso # (Auto) 0.03 (0.02-0.10) K/uL Sodium 139 (136-145) mmol/L Potassium 4.1 (3.5-5.1) mmol/L Chloride 102 (98-107) mmol/L Carbon Dioxide 27.7 (21.0-32.0) mmol/L Anion Gap 13.4 (5.0-15.0) mmol/L BUN 13 (8-26) mg/dL Creatinine 0.84 (0.55-1.02) mg/dL Est Cr Clr Drug Dosing TNP Estimated GFR (MDRD) > 60 (>60) MLS/MIN BUN/Creatinine Ratio 15.5 (6-25) Glucose 93 (74-100) mg/dL Calcium 8.6 (8.5-10.1) mg/dL Total Bilirubin 0.6 D (0.0-1.0) mg/dL AST 21 (15-37) U/L ALT 39 (12-78) U/L Alkaline Phosphatase 75 (46-116) U/L C-Reactive Protein 13.9 H (0.0-3.0) mg/L Total Protein 7.7 (6.4-8.2) g/dL Albumin 3.8 (3.4-5.0) g/dL Globulin 3.9 (2.2-4.2) g/dL Albumin/Globulin Ratio 1.0 (0.8-2.0) Meds: Medications Discontinued Medications Generic Name Dose Route Start Last Admin Trade Name Freq PRN Reason Stop Dose Admin Cyclobenzaprine HCl 10 mg 12/09/19 17:26 12/09/19 17:31 Flexeril PO 12/09/19 17:27 10 mg ONETIME ONE Administration Cyclobenzaprine HCl Confirm 12/09/19 17:37 12/09/19 17:49 Flexeril Administered 12/09/19 17:38 Not Given Dose 10 mg .ROUTE .STK-MED ONE Dexamethasone 12 mg 12/09/19 18:24 12/09/19 18:30 Dexamethasone PO 12/09/19 18:25 12 mg ONETIME ONE Administration Ketorolac Tromethamine 60 mg 12/09/19 17:25 12/09/19 17:30 Toradol IM 12/09/19 17:26 60 mg ONETIME ONE Administration Ketorolac Tromethamine Confirm 12/09/19 17:36 12/09/19 17:49 Toradol Administered 12/09/19 17:37 Not Given Dose 60 mg .ROUTE .STK-MED ONE Tramadol HCl 500 mg 12/09/19 18:00 Ultram .ROUTE 12/09/19 18:01 .STK-MED ONE Departure - Departure Time of Disposition: 18:00 Disposition: Home, Self-Care 01 Condition: Good Clinical Impression: Flank pain - Discharge Information Instructions: Costochondritis, [id number], Bursitis, [id number], Musculoskeletal Pain, Ketorolac tablets Referrals: PCP,None [Primary Care Provider] - Forms: ED Department Discharge, ED Return to Work/School Form Sepsis Event Note - Evaluation Sepsis Screening Result: No Definite Risk - Focused Exam Date Exam was Performed: 12/11/19 Time Exam was Performed: 18:21
[2019-12-09] MEDS: Cyclobenzaprine 10 MG Tab ONE (17:49)
[2019-12-09] MEDS: Ketorolac 60 MG/2 ML SDV ONE (17:49)
[2019-12-09] MEDS ORDERED: traMADol 50 MG Tab ONE (18:00)
[2019-12-09] MEDS: Dexamethasone 4 MG Tab PO ONE (18:30)
== END 2019-12-09 18:30 | disposition home or self-care (01) ==
LOC: LB.ED 16:49
DX: R10.13 Epigastric pain (principal); J45.909 Unspecified asthma, uncomplicated; Z88.0 Allergy status to penicillin
CPT/HCPCS: 36415; 80053; 85025; 86140; 96372; 99283; 99284; A9270-GY; J1885; J8540

== ENCOUNTER 2019-12-16 17:32 | Emergency (ER) | payer MEDICARE, MEDICAID ==
[2019-12-16 18:14] VITALS: BP 136/98; PULSE 78
--- NOTE | 2019-12-16 18:24 | EDM.PDOC ---
ED HPI GENERAL MEDICAL PROBLEM - General Chief Complaint: Abdominal Pain Stated Complaint: LRQ PAIN Time Seen by Provider: 12/16/19 18:10 Source of Information: Reports: Patient History Limitations: Reports: No Limitations - History of Present Illness INITIAL COMMENTS - FREE TEXT/NARRATIVE: This patient presents to the ED for evaluation of abdominal pain. The pain began earlier today and is "all over" her abdomen. She was recently hospitalized for diverticulitis and had been doing fine at home until today. She states she does not have an appetite and vomited once. She had one episode of diarrhea today as well. She denies any fever, cough, or shortness of breath. She states she was seen about 1 week ago for pain in her right side and down her leg but that is now better. She denies other concerns or complaints. Onset: Today, Sudden Duration: Getting Worse Location: Reports: Abdomen Quality: Reports: Stabbing Severity: Severe Improves with: Reports: None Worsens with: Reports: None Associated Symptoms: Reports: Loss of Appetite, Nausea/Vomiting. Denies: Chest Pain, Cough, Diaphoresis, Fever/Chills, Headaches, Shortness of Breath Abdominal Pain Score (Numeric/FACES): 8 - Related Data Allergies Allergy/AdvReac Type Severity Reaction Status Date / Time Penicillins Allergy Intermediate Rash Verified 12/16/19 18:04 Home Meds: Home Meds Albuterol Sulfate [Ventolin Hfa] 1 puff INH BID PRN 07/07/17 [History] Albuterol/Ipratropium [Combivent Respimat] 1 puff INH BID PRN 07/07/17 [History] SUMAtriptan [Imitrex] 50 mg PO ASDIRECTED PRN 07/07/17 [History] Past Medical History 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: Asthma Gastrointestinal History: Reports: None Genitourinary History: Reports: None [employer] History: Reports: Neurological History: Reports: Migraines - Infectious Disease History Infectious Disease History: Reports: Chicken Pox - Past Surgical History Respiratory Surgical History: Reports: None GI Surgical History: Reports: Cholecystectomy Female Surgical History: Reports: Section, Tubal Ligation Neurological Surgical History: Reports: None Social & Family History - Family History Family Medical History: Noncontributory - Tobacco Use Smoking Status *Q: Current Every Day Smoker - Caffeine Use Caffeine Use: Reports: Soda ED ROS GENERAL - Review of Systems Review Of Systems: Comprehensive ROS is negative, except as noted in HPI. ED EXAM, GI/ABD - Physical Exam Exam: See Below Exam Limited By: Other (crying through exam) General Appearance: Alert, Anxious, Severe Distress Eyes: Bilateral: Normal Appearance Ears: Normal External Exam Nose: Normal Inspection, Normal Mucosa Throat/Mouth: Normal Inspection Head: Atraumatic, Normocephalic Neck: Normal Inspection, Supple, Non-Tender, Full Range of Motion Respiratory/Chest: No Respiratory Distress, Lungs Clear, Normal Breath Sounds, No Accessory Muscle Use Cardiovascular: Regular Rate, Rhythm GI/Abdominal Exam: Normal Bowel Sounds, Soft, No Organomegaly, No Distention, Other (exquisite tenderness with palpation of all quadrants) Extremities: Normal Inspection Neurological: Alert, Oriented Psychiatric: Tearful Skin Exam: Warm, Dry, Intact Course - Vital Signs Last Recorded V/S: Last Vital Signs Temp 36.3 C 12/16/19 17:55 Pulse 78 12/16/19 17:55 Resp 20 12/16/19 17:55 BP 136/98 H 12/16/19 17:55 Pulse Ox 97 12/16/19 17:55 - Orders/Labs/Meds Orders: Active Orders 24 hr Category Date Time Status Abdomen 2V AP Flat Upright [CR] Stat Exams 12/16/19 18:16 Taken - Re-Assessments/Exams Free Text/Narrative Re-Assessment/Exam: 12/17/19 07:22 This patient presents with abdominal pain as detailed above. A broad differential diagnosis was considered including appendicitis, gall bladder disease, pancreatitis, diverticular disease, bowel obstruction, volvulus, intussusception, gastritis and peptic ulcer disease, gastro intestinal infection , inflammatory bowel disease, peritonitis, kidney stones, UTI, related complications, PID and ovarian cyst, mesenteric lymphadenopathy, IBS. The workup in the ED is at this point negative. No definitive etiology for the patients pain is found at this point and my suspicion of an intraabdominal catastrophe or other worrisome etiology is low. Imaging studies show a large stool burden. At this time there is no indication for admission for serial exams and further workup. Patient is hemodynamically stable in the UR. Plan is home with 12 hour abdominal pain recheck by primary care physician or return to ED at that time. Return for fevers greater than 102, increasing pain, other new symptoms develop. Abdominal pain instructions given to patient. Questions were answered Departure - Departure Time of Disposition: 18:30 Disposition: Home, Self-Care 01 Condition: Good Clinical Impression: Constipation - Discharge Information Instructions: Constipation, Adult, [id number] Referrals: PCP,None [Primary Care Provider] - Forms: ED Department Discharge, ED Return to Work/School Form Additional Instructions: Discharge home. Prune juice, milk of magnesia and continue stool softener. Increase fluid intake and fruits in your diet. Follow up with your primary provider as needed. Sepsis Event Note - Evaluation Sepsis Screening Result: No Definite Risk - Focused Exam Date Exam was Performed: 12/17/19 Time Exam was Performed: 07:22 - My Orders Last 24 Hours: My Active Orders 12/16/19 18:16 Abdomen 2V AP Flat Upright [CR] Stat - Assessment/Plan Last 24 Hours: My Active Orders 12/16/19 18:16 Abdomen 2V AP Flat Upright [CR] Stat
--- NOTE | 2019-12-17 07:23 | CR ---
DATE OF SERVICE: 12/16/19 CLINICAL DATA: pain SUPINE AND UPRIGHT ABDOMEN: There are surgical clips in the right upper quadrant consistent with prior cholecystectomy. No evidence of obstruction or ileus. No free air. [id number] [facility]
== END 2019-12-16 18:55 | disposition home or self-care (01) ==
LOC: LB.ED 17:32
DX: K59.00 Constipation, unspecified (principal); J45.909 Unspecified asthma, uncomplicated; G43.909 Migraine, unspecified, not intractable, without status migrainosus; F17.200 Nicotine dependence, unspecified, uncomplicated; Z88.0 Allergy status to penicillin; Z90.49 Acquired absence of other specified parts of digestive tract; Z98.51 Tubal ligation status; Z98.890 Other specified postprocedural states
CPT/HCPCS: 74019; 99284-25

== ENCOUNTER 2020-02-13 02:58 | Emergency (ER) | payer MEDICARE, MEDICAID ==
--- NOTE | 2020-02-13 03:56 | EDM.PDOC ---
ED HPI GENERAL MEDICAL PROBLEM - General Chief Complaint: Abdominal Pain Stated Complaint: right sided abd pain Time Seen by Provider: 02/13/20 03:30 Source of Information: Reports: Patient History Limitations: Reports: No Limitations - History of Present Illness INITIAL COMMENTS - FREE TEXT/NARRATIVE: pt presents to the ER with pain in her right upper and lower abdomen which she states "woke her from sleep" the pain onset was shortly prior to arrival. pt states she has not attempted any intervention and repositioning does not provide relief. symptoms worsen with movement and palpation. she denies fever, chills, nausea, vomiting, diarrhea, weakness, hematuria. 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 ED EXAM, GENERAL - Physical Exam Exam: See Below Exam Limited By: No Limitations General Appearance: Alert, WD/WN Respiratory/Chest: No Respiratory Distress, Lungs Clear, Normal Breath Sounds, No Accessory Muscle Use Cardiovascular: Normal Peripheral Pulses, Regular Rate, Rhythm, No Edema, No Gallop, No Murmur, No Rub Peripheral Pulses: 2+: Radial (L), Radial (R), Dorsalis Pedis (L), Dorsalis Pedis (R) GI/Abdominal: Soft, No Distention, No Mass, Tender (RUQ, RLQ, suprapubic TTP) Extremities: Normal Inspection, Normal Range of Motion, Non-Tender, No Pedal Edema Neurological: Alert, Oriented, CN II-XII Intact, Normal Cognition, Normal Gait Skin Exam: Warm, Dry, Intact, Normal Color, No Rash Lymphatic: No Adenopathy Course - Orders/Labs/Meds Orders: Active Orders 24 hr Category Date Time Status CBC WITH AUTO DIFF [HEME] Stat Lab 02/13/20 03:48 Ordered COMPREHENSIVE METABOLIC PN,CMP [CHEM] Stat Lab 02/13/20 03:48 Ordered CRP [C-REACTIVE PROTEIN] [CHEM] Stat Lab 02/13/20 03:48 Ordered UA RFX LORENE AND CULT IF INDIC [URIN] Stat Lab 02/13/20 03:50 Ordered Departure - Departure Time of Disposition: 04:58 Disposition: Home, Self-Care 01 Condition: Good Clinical Impression: Right sided abdominal pain - Discharge Information *PRESCRIPTION DRUG MONITORING PROGRAM REVIEWED*: Not Applicable *COPY OF PRESCRIPTION DRUG MONITORING REPORT IN PATIENT LASHONDA: Not Applicable Forms: ED Department Discharge, ED Return to Work/School Form Additional Instructions: labs look good, no fever, concern for infection is low. your gallbladder has been taken out so I'm less concerned for that as well. follow up in the clinic early next week if symptoms worsen or change/ new concerns arise, return to ER - Problem List & Annotations (1) Right sided abdominal pain SNOMED Code(s): 179532885 Code(s): R10.9 - UNSPECIFIED ABDOMINAL PAIN Status: Acute - Problem List Review Problem List Initiated/Reviewed/Updated: Yes - My Orders Last 24 Hours: My Active Orders 02/13/20 03:48 CBC WITH AUTO DIFF [HEME] Stat COMPREHENSIVE METABOLIC PN,CMP [CHEM] Stat CRP [C-REACTIVE PROTEIN] [CHEM] Stat 02/13/20 03:50 UA RFX LORENE AND CULT IF INDIC [URIN] Stat - Assessment/Plan Last 24 Hours: My Active Orders 02/13/20 03:48 CBC WITH AUTO DIFF [HEME] Stat COMPREHENSIVE METABOLIC PN,CMP [CHEM] Stat CRP [C-REACTIVE PROTEIN] [CHEM] Stat 02/13/20 03:50 UA RFX LORENE AND CULT IF INDIC [URIN] Stat Assessment:: assessment: right side abdominal pain plan: clinic follow up pop for recheck return to ER if symptoms worsen or change laboratory workup is essentially normal, pt appears generally well and in no acute distress throughout her ED course. encouraged pt to follow up in the clinic as soon as possible which would likely be next week. if symptoms worsen or new concerns arise, she is to return to the ER for a recheck. some of the differentials considered were constipation, appendicitis, volvulus, cystitis.
[2020-02-13 04:51] VITALS: BP 150/84; PULSE 74
== END 2020-02-13 05:19 | disposition home or self-care (01) ==
LOC: LB.ED 02:58
DX: R10.11 Right upper quadrant pain (principal); R10.31 Right lower quadrant pain; J45.909 Unspecified asthma, uncomplicated; Z88.0 Allergy status to penicillin; Z79.899 Other long term (current) drug therapy
CPT/HCPCS: 36415; 80053; 81001; 85025; 86140; 99282; 99284

== ENCOUNTER 2020-06-13 11:09 | Emergency (ER) | payer MEDICARE, MEDICAID ==
[2020-06-13 11:53] VITALS: BP 133/74; PULSE 63
--- NOTE | 2020-06-13 12:07 | EDM.PDOC ---
ED HPI GENERAL MEDICAL PROBLEM - General Chief Complaint: Lower Extremity Injury/Pain Stated Complaint: ANKLE INJURY Time Seen by Provider: 06/13/20 11:45 Source of Information: Reports: Patient History Limitations: Reports: No Limitations - History of Present Illness INITIAL COMMENTS - FREE TEXT/NARRATIVE: Patient is a 44 y/o female who presents with left lateral ankle pain and swelling. She rolled in Sunday and has been limping ever since. Patient takes motrin at home and has been using an brenda wrap. She also has crutches at home. She denies any numbness/tingling, head injury, or LOC. 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: Neurological History: Reports: Migraines Psychiatric History: Reports: Anxiety - Infectious Disease History Infectious Disease History: Reports: Chicken Pox - Past Surgical History Respiratory Surgical History: Reports: None GI Surgical History: Reports: Cholecystectomy Female Surgical History: Reports: Section, Tubal Ligation Neurological Surgical History: Reports: None Social & Family History - Family History Family Medical History: No Pertinent Family History - Tobacco Use Tobacco Use Status *Q: Unknown Ever Used Tobacco Second Hand Smoke Exposure: No - Caffeine Use Caffeine Use: Reports: Coffee, Soda - Recreational Drug Use Recreational Drug Use: No Review of Systems - Review of Systems Review Of Systems: See Below Constitutional: Reports: No Symptoms Eyes: Reports: No Symptoms Ears: Reports: No Symptoms Nose: Reports: No Symptoms Mouth/Throat: Reports: No Symptoms Respiratory: Reports: No Symptoms Cardiovascular: Reports: No Symptoms GI/Abdominal: Reports: No Symptoms Musculoskeletal: Reports: Other (left ankle pain and swelling) Skin: Reports: No Symptoms Neurological: Reports: No Symptoms ED EXAM, GENERAL - Physical Exam Exam: See Below Exam Limited By: No Limitations General Appearance: Alert, No Apparent Distress Head: Atraumatic, Normocephalic Respiratory/Chest: No Respiratory Distress, No Accessory Muscle Use Extremities: Normal Capillary Refill, Joint Swelling, Limited Range of Motion, Other (left lateral malleolus swelling and tenderness to palpation; patient favors left side when walking) Neurological: Alert, Oriented, No Motor/Sensory Deficits Skin Exam: Warm, Dry, Intact, Normal Color, No Rash Course - Vital Signs Last Recorded V/S: Last Vital Signs Temp 36.3 C 06/13/20 11:24 Pulse 63 06/13/20 11:24 Resp 18 06/13/20 11:24 BP 133/74 06/13/20 11:24 Pulse Ox 99 06/13/20 11:24 - Orders/Labs/Meds Orders: Active Orders 24 hr Category Date Time Status Ankle Min 3V Lt [CR] Stat Exams 06/13/20 11:43 Taken Departure - Departure Time of Disposition: 12:10 Disposition: Home, Self-Care 01 Condition: Good Clinical Impression: Left ankle sprain Qualifiers: Encounter type: initial encounter Involved ligament of ankle: unspecified ligament Qualified Code(s): S93.402A - Sprain of unspecified ligament of left ankle, initial encounter - Discharge Information *PRESCRIPTION DRUG MONITORING PROGRAM REVIEWED*: Not Applicable *COPY OF PRESCRIPTION DRUG MONITORING REPORT IN PATIENT LASHONDA: Not Applicable Instructions: Ankle Sprain, [id number] Sepsis Event Note (ED) - Evaluation Sepsis Screening Result: No Definite Risk - Focused Exam Vital Signs: Vital Signs Temp Pulse Resp BP Pulse Ox 06/13/20 11:24 36.3 C 63 18 133/74 99 - My Orders Last 24 Hours: My Active Orders 06/13/20 11:43 Ankle Min 3V Lt [CR] Stat - Assessment/Plan Last 24 Hours: My Active Orders 06/13/20 11:43 Ankle Min 3V Lt [CR] Stat
--- NOTE | 2020-06-13 14:47 | CR ---
DATE OF SERVICE: 06/13/20 CLINICAL DATA: left ankle pain LEFT ANKLE: There is moderate soft tissue swelling adjacent to the ankle joint. No acute fracture or dislocation. No lytic or blastic bone lesions. There are plantar and posterior calcaneal spurs. [id number] [facility]
== END 2020-06-13 12:15 | disposition home or self-care (01) ==
LOC: LB.ED 11:09
DX: S93.402A Sprain of unspecified ligament of left ankle, initial encounter (principal); J45.909 Unspecified asthma, uncomplicated; Z88.0 Allergy status to penicillin; X50.9XXA Other and unspecified overexertion or strenuous movements or postures, initial encounter
CPT/HCPCS: 73610-LT; 99283

== ENCOUNTER 2020-09-30 15:11 | Emergency (ER) | payer MEDICARE, MEDICAID ==
[2020-09-30] MEDS ORDERED: Morphine 2 MG/ML SYRINGE IVPUSH ONE ×3 (15:37→18:40)
[2020-09-30] MEDS ORDERED: Morphine 2 MG/ML SYRINGE ONE ×2 (15:45→17:54)
--- NOTE | 2020-09-30 15:45 | EDM.PDOC ---
ED HPI GENERAL MEDICAL PROBLEM - General Stated Complaint: RIGHT SIDE PAIN Time Seen by Provider: 09/30/20 15:25 Source of Information: Reports: Patient History Limitations: Reports: No Limitations - History of Present Illness INITIAL COMMENTS - FREE TEXT/NARRATIVE: Ms. Green is a 44 YOF here for Rt flank/ abdominal pain. She has a history of diverticulitis. She has taken Tylenol with no relief, for her symptoms. Symptoms began today. Has a Fever. No N, V or D reported by patient. No chest pain or SOB. Pain is 8/10 and increases with movement. Onset: Today Duration: Hour(s): Quality: Reports: Sharp, Stabbing Severity: Moderate Improves with: Reports: None Worsens with: Reports: Movement Associated Symptoms: Reports: No Other Symptoms Treatments RUG CLIPPER: Reports: Other (see below) (Morphine given in ED. 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: Neurological History: Reports: Migraines Psychiatric History: Reports: Anxiety - Infectious Disease History Infectious Disease History: Reports: Chicken Pox - Past Surgical History Respiratory Surgical History: Reports: None GI Surgical History: Reports: Cholecystectomy Female Surgical History: Reports: Section, Tubal Ligation Neurological Surgical History: Reports: None Social & Family History - Family History Family Medical History: No Pertinent Family History - Caffeine Use Caffeine Use: Reports: Coffee, Soda ED ROS GENERAL - Review of Systems Review Of Systems: Comprehensive ROS is negative, except as noted in HPI. GI/Abdominal: Reports: Abdominal Pain (Rt flankl) ED EXAM, GI/ABD - Physical Exam Exam: See Below Exam Limited By: No Limitations General Appearance: Alert, Mild Distress Ears: Normal External Exam Nose: Normal Inspection, Normal Mucosa Throat/Mouth: Normal Inspection, Normal Lips, Normal Teeth Head: Atraumatic, Normocephalic Neck: Normal Inspection, Supple, Non-Tender Respiratory/Chest: No Respiratory Distress, Lungs Clear, Normal Breath Sounds Cardiovascular: Normal Peripheral Pulses, Regular Rate, Rhythm GI/Abdominal Exam: Normal Bowel Sounds, Soft, Guarding, Tender Back Exam: Normal Inspection Extremities: Normal Inspection, Normal Range of Motion Neurological: Alert, Oriented, CN II-XII Intact Psychiatric: Normal Affect, Anxious Skin Exam: Warm, Dry, Intact Lymphatic: No Adenopathy Course - Vital Signs Last Recorded V/S: Last Vital Signs Temp 38.3 C H 09/30/20 15:51 Pulse 83 09/30/20 15:51 Resp 16 09/30/20 15:51 BP 132/71 09/30/20 15:51 Pulse Ox 98 09/30/20 15:51 - Orders/Labs/Meds Orders: Active Orders 24 hr Category Date Time Status Abdomen Pelvis w wo Cont [CT] Stat Exams 09/30/20 15:34 Taken Labs: Laboratory Tests 09/30/20 09/30/20 09/30/20 Range/Units 15:34 15:34 17:07 WBC 13.3 H D (4.0-11.0) K/uL RBC 4.69 (3.80-5.80) M/uL Hgb 13.6 (11.5-16.5) g/dL Hct 40.1 (37.0-47.0) % MCV 86 (76-96) fL MCH 29.0 (27.0-32.0) pg MCHC 33.9 (31.0-35.0) g/dL RDW 13.1 (11.0-16.0) % Plt Count 182 D (150-500) K/uL MPV 9.8 (6.0-10.0) fL Sodium 137 (136-145) mmol/L Potassium 3.2 L D (3.5-5.1) mmol/L Chloride 99 (98-107) mmol/L Carbon Dioxide 29.8 (21.0-32.0) mmol/L Anion Gap 11.4 (5.0-15.0) mmol/L BUN 17 (8-26) mg/dL Creatinine 1.02 (0.55-1.02) mg/dL Est Cr Clr Drug Dosing 54.22 mL/min Estimated GFR (MDRD) 59 L (>60) MLS/MIN BUN/Creatinine Ratio 16.7 (6-25) Glucose 94 (74-100) mg/dL Calcium 8.3 L (8.5-10.1) mg/dL Total Bilirubin 0.7 D (0.0-1.0) mg/dL AST 61 H (15-37) U/L ALT 80 H (12-78) U/L Alkaline Phosphatase 112 (46-116) U/L Total Protein 7.3 (6.4-8.2) g/dL Albumin 3.2 L (3.4-5.0) g/dL Globulin 4.1 (2.2-4.2) g/dL Albumin/Globulin Ratio 0.8 (0.8-2.0) Urine Color Yellow Urine Appearance Clear (CLEAR) Urine pH 7.0 (5.0-8.0) Ur Specific [place] 1.015 (1.003-1.030) Urine Protein 30 H (NEGATIVE) mg/dL Urine Glucose (UA) Negative (NEGATIVE) mg/dL Urine Ketones 15 H (NEGATIVE) mg/dL Urine Occult Blood Moderate H (NEGATIVE) Urine Nitrite Negative (NEGATIVE) Urine Bilirubin Small H (NEGATIVE) Urine Urobilinogen 4.0 H (0.2-1.0) E.U./dL Ur Leukocyte Esterase Negative (NEGATIVE) Meds: Medications Discontinued Medications Generic Name Dose Route Start Last Admin Trade Name Sidq PRN Reason Stop Dose Admin Iopamidol 100 ml 09/30/20 16:30 09/30/20 16:32 Isovue-300 (61%) IV 100 ml . DIRECTED CARMEL Administration Morphine Sulfate Confirm 09/30/20 15:45 Morphine Administered 09/30/20 15:46 Dose 2 mg .ROUTE .STK-MED ONE Morphine Sulfate 1 mg 09/30/20 15:37 09/30/20 15:42 Morphine IVPUSH 09/30/20 15:38 1 mg Q1H ONE Administration Morphine Sulfate 1 mg 09/30/20 16:28 09/30/20 16:29 Morphine IVPUSH 09/30/20 16:29 1 mg ONETIME ONE Administration Morphine Sulfate Confirm 09/30/20 17:54 Morphine Administered 09/30/20 17:55 Dose 2 mg .ROUTE .STK-MED ONE Morphine Sulfate 1 mg 09/30/20 18:40 09/30/20 17:55 Morphine IVPUSH 09/30/20 18:41 1 mg ONETIME ONE Administration Sodium Chloride 50 ml 09/30/20 16:24 09/30/20 16:32 Normal Saline FLUSH 09/30/20 16:25 50 ml ONETIME ONE Administration Departure - Departure Time of Disposition: 18:15 Disposition: DC/Tfer to Acute Hospital 02 Condition: Good Clinical Impression: Pelvic abscess in female Sepsis Qualifiers: Sepsis acute organ dysfunction status: unspecified - Discharge Information *PRESCRIPTION DRUG MONITORING PROGRAM REVIEWED*: Not Applicable Referrals: PCP,None [Primary Care Provider] - Forms: ED Department Discharge Care Plan Goals: Consult with LEATHER FITTER/ General surgeon Sepsis Event Note (ED) - Focused Exam Vital Signs: Vital Signs Temp Pulse Resp BP Pulse Ox 09/30/20 15:51 38.3 C H 83 16 132/71 98 09/30/20 15:30 38.3 C H 104 H 18 132/83 97 - My Orders Last 24 Hours: My Active Orders 09/30/20 15:34 Abdomen Pelvis w wo Cont [CT] Stat - Assessment/Plan Last 24 Hours: My Active Orders 09/30/20 15:34 Abdomen Pelvis w wo Cont [CT] Stat Assessment:: Rt lower abdominal pain with mild fever present. Pelvic infection vs acute appendicitis. Plan: Transfer to [facility] for surgical consult and treatment.
[2020-09-30 15:53] VITALS: BP 132/71; PULSE 83
[2020-09-30] MEDS ORDERED: Sodium Chloride 0.9% 50 ML SDV FLUSH ONE (16:24)
[2020-09-30] MEDS ORDERED: Iopamidol 612 MG/ML 100 ML Bottle IV SCH (16:30)
--- NOTE | 2020-10-01 14:04 | CT ---
DATE OF SERVICE: 09/30/2020 CLINICAL DATA: Right lower quadrant pain Unenhanced and enhanced abdomen and pelvic CT: Multi slice acquisition through the abdomen and pelvis without and with IV contrast was performed. Comparison is made to a prior exam dated 14 November 2019. There are mild atelectatic changes in the dependent portion of the right lower lung. The lung bases are otherwise clear. The heart size is normal. No significant pericardial effusion. The liver is normal size with homogenous attenuation. No focal hepatic lesions. The patient is status post cholecystectomy. No biliary duct dilatation. The spleen appears normal. The pancreas appears normal. The right and left adrenals appear normal. The appendix is not clearly identified. There is however fat stranding adjacent to the cecum and distal ileum. There is also fat stranding and mild soft tissue fullness in the region of the right adnexa. There is a moderate amount of free fluid noted within the pelvis on the right. The above findings are nonspecific. Appendicitis cannot be excluded. PID should be considered. Also consider ectopic . There is diverticulosis of the descending and sigmoid colon. Diverticulitis is also included in the differential. The right uterine vein appear dilated. No free air. No dilated loops of bowel. No adenopathy. No aortic aneurysm or dissection. Impression: Abnormal exam. See above. The patient's healthcare provider was notified of the findings by telephone and by virtual radiologic preliminary radiology report. Thank you for allowing us to participate in the care of your patient. EVANS
== END 2020-09-30 18:00 ==
LOC: LB.ED 15:11
DX: A41.9 Sepsis, unspecified organism (principal); N73.9 Female pelvic inflammatory disease, unspecified; J45.909 Unspecified asthma, uncomplicated; Z88.0 Allergy status to penicillin
CPT/HCPCS: 36415; 74178; 80053; 81003; 85027; 96374; 96376; 99285; 99285-25; A0425; A0429; J2270; Q9967

== ENCOUNTER 2020-12-21 15:39 | Emergency (ER) | payer MEDICARE, MEDICAID ==
[2020-12-21 17:16] VITALS: BP 141/100; PULSE 90
[2020-12-21] MEDS: Magnesium Citrate Solution 296 ML Bottle PO ONE (17:36)
--- NOTE | 2020-12-21 18:12 | EDM.PDOC ---
ED HPI GENERAL MEDICAL PROBLEM - General Chief Complaint: General Stated Complaint: CONSTIPATION/BLOODY STOOLS Time Seen by Provider: 12/21/20 16:05 Source of Information: Reports: Patient History Limitations: Reports: No Limitations - History of Present Illness INITIAL COMMENTS - FREE TEXT/NARRATIVE: patient presented to the ER with a c/o lower abdominal pain. Reports it started 4-5 days ago, spasm-like in nature, and comes in a bouts. Also reports that she didn't have a BM for 4-5 days. Tried miralax and a suppository but didn't help. No N/V. no similar complaint in the past. h/o recent pelvic surgery---2 months ago -- laparoscopic oophorectomy and appendectomy. No fever or chills. Onset: Gradual Duration: Day(s): (5) Location: Reports: Abdomen Quality: Reports: Sharp, Stabbing Severity: Severe Improves with: Reports: None Worsens with: Reports: None Associated Symptoms: Reports: No Other Symptoms - Related Data Allergies Allergy/AdvReac Type Severity Reaction Status Date / Time Penicillins Allergy Intermediate Rash Verified 06/13/20 11:37 Home Meds: Home Meds Albuterol Sulfate [Ventolin Hfa] 1 puff INH BID PRN 07/07/17 [History] Albuterol/Ipratropium [Combivent Respimat] 1 puff INH BID PRN 07/07/17 [History] SUMAtriptan [Imitrex] 50 mg PO ASDIRECTED PRN 07/07/17 [History] Past Medical History 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: Asthma Gastrointestinal History: Reports: Diverticulosis Genitourinary History: Reports: None 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: Neurological History: Reports: Migraines Psychiatric History: Reports: Anxiety - Infectious Disease History Infectious Disease History: Reports: Chicken Pox - Past Surgical History Respiratory Surgical History: Reports: None GI Surgical History: Reports: Appendectomy, Cholecystectomy Female Surgical History: Reports: Section, Oophorectomy, Tubal Ligation Neurological Surgical History: Reports: None Social & Family History - Family History Family Medical History: No Pertinent Family History - Tobacco Use Tobacco Use Status *Q: Light Tobacco User Years of Tobacco use: 20 Packs/Tins Daily: 0.5 - Caffeine Use Caffeine Use: Reports: Coffee, Soda ED ROS GENERAL - Review of Systems Review Of Systems: See Below Constitutional: Reports: No Symptoms HEENT: Reports: No Symptoms Respiratory: Reports: No Symptoms Cardiovascular: Reports: No Symptoms GI/Abdominal: Reports: Abdominal Pain, Constipation : Reports: No Symptoms Musculoskeletal: Reports: No Symptoms Skin: Reports: No Symptoms ED EXAM, GENERAL - Physical Exam Exam: See Below Exam Limited By: No Limitations General Appearance: Alert, WD/WN, No Apparent Distress Eye Exam: Bilateral Eye: EOMI Respiratory/Chest: No Respiratory Distress Cardiovascular: Normal Peripheral Pulses GI/Abdominal: Soft, No Distention, Tender (mild discomfort to palpaiton - throughout the abdomen ), Abnormal Bowel Sounds. No: Rebound Extremities: Normal Inspection Neurological: Alert, Oriented, No Motor/Sensory Deficits Skin Exam: Warm Course - Vital Signs Last Recorded V/S: Last Vital Signs Temp 36.9 C 12/21/20 16:15 Pulse 90 12/21/20 16:15 Resp 16 12/21/20 16:15 BP 141/100 H 12/21/20 16:15 Pulse Ox 95 12/21/20 16:15 - Orders/Labs/Meds Orders: Active Orders 24 hr Category Date Time Status Abdomen Pelvis wo Cont [CT] Stat Exams 12/21/20 Taken Labs: Laboratory Tests 12/21/20 12/21/20 Range/Units 16:40 16:40 WBC 9.3 D (4.0-11.0) K/uL RBC 5.11 (3.80-5.80) M/uL Hgb 14.8 (11.5-16.5) g/dL Hct 43.8 (37.0-47.0) % MCV 86 (76-96) fL MCH 29.0 (27.0-32.0) pg MCHC 33.8 (31.0-35.0) g/dL RDW 13.6 (11.0-16.0) % Plt Count 238 D (150-500) K/uL MPV 9.7 (6.0-10.0) fL Neut % (Auto) 63.9 (45.0-70.0) % Lymph % (Auto) 23.4 (20.0-40.0) % White % (Auto) 11.3 H (3.0-10.0) % Eos % (Auto) 1.2 (1.0-5.0) % Baso % (Auto) 0.2 (0.0-0.5) % Neut # (Auto) 5.97 (2.00-7.50) K/uL Lymph # (Auto) 2.18 (1.50-4.00) K/uL White # (Auto) 1.05 H (0.20-0.80) K/uL Eos # (Auto) 0.11 (0.04-0.40) K/uL Baso # (Auto) 0.02 (0.02-0.10) K/uL Sodium 139 (136-145) mmol/L Potassium 4.0 D (3.5-5.1) mmol/L Chloride 101 (98-107) mmol/L Carbon Dioxide 28.4 (21.0-32.0) mmol/L Anion Gap 13.6 (5.0-15.0) mmol/L BUN 14 (8-26) mg/dL Creatinine 0.91 (0.55-1.02) mg/dL Est Cr Clr Drug Dosing TNP Estimated GFR (MDRD) > 60 (>60) MLS/MIN BUN/Creatinine Ratio 15.4 (6-25) Glucose 89 (74-100) mg/dL Calcium 8.5 (8.5-10.1) mg/dL Meds: Medications Discontinued Medications Generic Name Dose Route Start Last Admin Trade Name Freq PRN Reason Stop Dose Admin Magnesium Citrate 296 ml 12/21/20 17:36 12/21/20 17:36 Magnesium Citrate Solution 296 Ml Bottle PO 12/21/20 17:37 296 ml ONETIME ONE Administration - Re-Assessments/Exams Free Text/Narrative Re-Assessment/Exam: labs were ordered -- no leukocytosis CT abd/pelv - no e/o SBO, but showed some tissue stranding and some free pelvic fluids. Probably related to her recent surgery. was given Mag Citrate PO will be d/cd home on suppository and Miralax PO. Departure - Departure Time of Disposition: 18:12 Disposition: Home, Self-Care 01 Condition: Good Clinical Impression: Constipation Qualifiers: Constipation type: slow transit constipation Qualified Code(s): K59.01 - Slow transit constipation Abdominal pain Qualifiers: Abdominal location: periumbilical Qualified Code(s): R10.33 - Periumbilical pain - Discharge Information *PRESCRIPTION DRUG MONITORING PROGRAM REVIEWED*: Not Applicable *COPY OF PRESCRIPTION DRUG MONITORING REPORT IN PATIENT LASHONDA: Not Applicable Instructions: Constipation, Adult Referrals: PCP,None [Primary Care Provider] - Sepsis Event Note (ED) - Evaluation Sepsis Screening Result: No Definite Risk - Focused Exam Vital Signs: Vital Signs Temp Pulse Resp BP Pulse Ox 12/21/20 16:15 36.9 C 90 16 141/100 H 95 - Problem List & Annotations (1) Constipation SNOMED Code(s): 55003664 Code(s): K59.00 - CONSTIPATION, UNSPECIFIED Status: Acute Priority: Medium Current Visit: Yes Qualifiers: Constipation type: slow transit constipation Qualified Code(s): K59.01 - Slow transit constipation (2) Abdominal pain SNOMED Code(s): 62116013 Code(s): R10.9 - UNSPECIFIED ABDOMINAL PAIN Status: Acute Priority: Medium Current Visit: Yes Qualifiers: Abdominal location: periumbilical Qualified Code(s): R10.33 - Periumbilical pain - Problem List Review Problem List Initiated/Reviewed/Updated: Yes - My Orders Last 24 Hours: My Active Orders 12/21/20 Abdomen Pelvis wo Cont [CT] Stat - Assessment/Plan Last 24 Hours: My Active Orders 12/21/20 Abdomen Pelvis wo Cont [CT] Stat Plan: - increase fluids intake to at least 3-4 liters a day - take stool softeners as prescribed - follow up with your PCP in 3-7 days as needed
--- NOTE | 2020-12-22 08:37 | CT ---
DATE OF SERVICE: 12/21/20 CLINICAL DATA: BLOOD IN STOOL UNENHANCED ABDOMEN AND PELVIC CT: Multislice axial acquisition without IV or oral contrast was performed. Comparison is made to a prior exam dated 09/30/20. The lung bases are clear. The heart size is normal. The unenhanced liver appears normal. The patient is status post cholecystectomy. The spleen, pancreas, right and left adrenals, and right and left kidneys are stable from the prior study. There are surgical changes involving the cecum, most likely related to prior appendectomy. There is a moderate amount of free fluid noted within the pelvis. There is mild fat stranding adjacent to the uterus and right adnexa. There is also mild fat stranding adjacent to the mid and distal sigmoid colon. Both have improved in appearance from the prior study. No other significant findings or significant interval changes from the prior study. No free air. No dilated loops of bowel. No adenopathy. No aortic aneurysm. [id number] [facility]
== END 2020-12-21 18:23 | disposition home or self-care (01) ==
LOC: LB.ED 15:39
DX: K59.01 Slow transit constipation (principal); J45.909 Unspecified asthma, uncomplicated; Z88.0 Allergy status to penicillin; Z72.0 Tobacco use
CPT/HCPCS: 36415; 74176; 80048; 85025; 99284; A9270; 99282

== ENCOUNTER 2022-02-10 15:37 | Emergency (ER) | payer MEDICARE, MEDICAID ==
[2022-02-10 15:55] VITALS: BP 145/100; PULSE 97
[2022-02-10] MEDS: HYDROmorphone 2 MG/ML Syringe IVPUSH ONE ×2 (16:10)
[2022-02-10] MEDS: HYDROmorphone 2 MG/ML Syringe ONE (16:11)
[2022-02-10] MEDS: HYDROmorphone 2 MG/ML SDV IM ONE (16:11)
[2022-02-10] MEDS: Ondansetron 4 MG/2 ML SDV IVPUSH ONE (16:46)
[2022-02-10] MEDS: Ondansetron 4 MG/2 ML SDV ONE (16:46)
[2022-02-10] MEDS: Ketorolac 30 MG/ML SDV IVPUSH ONE (16:55)
[2022-02-10] MEDS: Ketorolac 30 MG/ML SDV ONE (17:11)
== END 2022-02-10 17:10 | disposition home or self-care (01) ==
LOC: LB.ED 15:37
DX: K57.92 Diverticulitis of intestine, part unspecified, without perforation or abscess without bleeding (principal); J45.909 Unspecified asthma, uncomplicated; Z88.0 Allergy status to penicillin; Z79.899 Other long term (current) drug therapy; Z90.49 Acquired absence of other specified parts of digestive tract
CPT/HCPCS: 36415; 74176; 80053; 81001; 83690; 85025; 96374; 96375; 99284; J1170; J1885; J2405

== ENCOUNTER 2024-06-10 18:43 | Emergency (ER) | payer MEDICARE, MEDICAID ==
[2024-06-10] MEDS: SUMAtriptan 6 MG/0.5 ML SDV SUBCUT ONE (19:07)
[2024-06-10] MEDS: Orphenadrine 60 MG/2 ML Inj IM ONE (19:08)
[2024-06-10] MEDS: Ondansetron 4 MG Tab.DIS PO SCH (19:43)
[2024-06-10] MEDS: Ondansetron 4 MG Tab.DIS ONE (20:12)
[2024-06-10 21:50] VITALS: BP 170/98; PULSE 80
== END 2024-06-10 21:20 | disposition home or self-care (01) ==
LOC: LB.ED 18:43
DX: G44.209 Tension-type headache, unspecified, not intractable (principal); J45.909 Unspecified asthma, uncomplicated; F17.210 Nicotine dependence, cigarettes, uncomplicated; Z79.899 Other long term (current) drug therapy; Z88.0 Allergy status to penicillin; Z90.49 Acquired absence of other specified parts of digestive tract
CPT/HCPCS: 96372; 99283; J2360; J3030; Q0162

== ENCOUNTER 2024-09-27 14:48 | Emergency (ER) | payer MEDICARE, MEDICAID ==
[2024-09-27] MEDS: Lidocaine 1% 30 ML SDV INJECT ONE (15:44)
[2024-09-27 16:27] VITALS: BP 131/81; PULSE 65
== END 2024-09-27 16:11 | disposition home or self-care (01) ==
LOC: LB.ED 14:48
DX: G43.909 Migraine, unspecified, not intractable, without status migrainosus (principal); J45.909 Unspecified asthma, uncomplicated; F17.210 Nicotine dependence, cigarettes, uncomplicated; Z90.49 Acquired absence of other specified parts of digestive tract; Z88.0 Allergy status to penicillin; Z79.51 Long term (current) use of inhaled steroids; Z79.899 Other long term (current) drug therapy
CPT/HCPCS: 99283

== ENCOUNTER 2024-12-05 19:49 | Emergency (ER) | payer MEDICARE, MEDICAID ==
[2024-12-05] MEDS: Ondansetron 4 MG Tab.DIS PO ONE (21:32)
[2024-12-05] MEDS: SUMAtriptan 6 MG/0.5 ML SDV SUBCUT ONE (21:37)
[2024-12-05] MEDS: Ketorolac 30 MG/ML SDV IM ONE (21:38)
[2024-12-05] MEDS: Prochlorperazine 10 MG Tab PO ONE (22:56)
[2024-12-05] MEDS: Orphenadrine 60 MG/2 ML Inj IM ONE (22:57)
[2024-12-06 00:01] VITALS: BP 143/91; PULSE 65
== END 2024-12-05 23:23 | disposition home or self-care (01) ==
LOC: LB.ED 19:49
DX: G43.909 Migraine, unspecified, not intractable, without status migrainosus (principal); J45.909 Unspecified asthma, uncomplicated; F17.210 Nicotine dependence, cigarettes, uncomplicated; Z88.0 Allergy status to penicillin; Z79.51 Long term (current) use of inhaled steroids
CPT/HCPCS: 96372; 99283; J1885; J2360; J3030; Q0162; Q0164

== ENCOUNTER 2025-03-02 13:23 | Emergency (ER) | payer MEDICARE, MEDICAID ==
[2025-03-02 14:49] LABS: MEAN PLATELET VOLUME 9.7 fL (6.0-10.0); PLATELET COUNT,PLT 209.0 K/uL (150-500); RED BLOOD CELL COUNT 5.08 M/uL (3.80-5.80); RED CELL DISTRIBUTION WIDTH 13.6 % (11.0-16.0); WHITE BLOOD CELL COUNT,WBC 6.9 K/uL (4.0-11.0)
[2025-03-02 15:13] VITALS: BP 123/86; PULSE 76
== END 2025-03-02 15:00 | disposition home or self-care (01) ==
LOC: LB.ED 13:23
DX: K64.9 Unspecified hemorrhoids (principal); Z88.0 Allergy status to penicillin; Z79.899 Other long term (current) drug therapy; Z90.49 Acquired absence of other specified parts of digestive tract; Z87.891 Personal history of nicotine dependence
CPT/HCPCS: 36415; 85027; 99283

== ENCOUNTER 2025-05-09 19:45 | Emergency (ER) | payer MEDICARE, MEDICAID ==
[2025-05-09] MEDS: Lidocaine 2% 10 ML Amp INJECT ONE (20:22)
[2025-05-09 22:53] VITALS: BP 128/88; PULSE 72
== END 2025-05-09 20:30 | disposition home or self-care (01) ==
LOC: LB.ED 19:45
DX: R51.9 Headache, unspecified (principal); Z88.0 Allergy status to penicillin; Z79.899 Other long term (current) drug therapy; Z90.49 Acquired absence of other specified parts of digestive tract
CPT/HCPCS: 64400; 99283-25

== ENCOUNTER 2025-06-19 14:22 | Emergency (ER) | payer MEDICARE, MEDICAID ==
[2025-06-19 16:00] VITALS: PULSE 69
[2025-06-19] MEDS: Orphenadrine 60 MG/2 ML Inj IM ONE (16:36)
[2025-06-19] MEDS: Ketorolac 30 MG/ML SDV IM ONE (16:37)
[2025-06-19 17:39] VITALS: BP 134/77
== END 2025-06-19 17:37 | disposition home or self-care (01) ==
LOC: LB.ED 14:22
DX: G43.909 Migraine, unspecified, not intractable, without status migrainosus (principal); J45.909 Unspecified asthma, uncomplicated; Z88.0 Allergy status to penicillin; Z79.899 Other long term (current) drug therapy; Z90.49 Acquired absence of other specified parts of digestive tract; Z87.891 Personal history of nicotine dependence
CPT/HCPCS: 96372; 99283; J2360; J1885